=== PATIENT | male | born 1955 | race Caucasian/White ===

== ENCOUNTER 2017-04-13 08:10 | Day surgery (SDC) | payer BC ==
[2017-04-13] MEDS ORDERED: Sodium Chloride 0.9% 20 ML ONE ×2 (08:39→09:05)
[2017-04-13] MEDS ORDERED: diphenhydrAMINE 25 MG CAP PO SCH (09:30)
[2017-04-13] MEDS ORDERED: Acetaminophen 500 MG TAB PO SCH (09:30)
[2017-04-13 14:28] VITALS: BP 162/76; TEMP 96.3
[2017-04-13 14:50] LABS: Hematocrit 29.9 % (42.0-52.0); Mean Platelet Volume 8.9 fL (7.4-10.4); Red Blood Cell (RBC) Count 2.85 mill/uL (4.70-6.10); White Blood Cell (WBC) Count 4.3 thou/uL (4.8-10.8)
[2017-04-13 15:27] LABS: Anisocytosis SLIGHT = 6-15 cells (100X) (0-5/hpf); Band 4 % (5-11); Metamyelocyte 1 % (0-0); Neutrophil 40 % (42-75); Poikilocytosis SLIGHT = 6-15 cells (100X) (0-5/hpf); Reactive Lymphocytes 8 % (0-10)
== END 2017-04-13 14:39 | disposition home or self-care (01) ==
LOC: ONC/OP 08:10
PROVIDERS: ATTEND Internal Medicine Medical Oncology
PROC: 30233N1 Transfusion of Nonautologous Red Blood Cells into Peripheral Vein, Percutaneous Approach (ICD-10-PCS; principal; 2017-04-13)
DX: D64.9 Anemia, unspecified (principal); D69.6 Thrombocytopenia, unspecified; Z87.891 Personal history of nicotine dependence
CPT/HCPCS: 36415; 36430; 85025; 86850; 86900; 86901; A4216; P9016

== ENCOUNTER 2017-05-18 07:41 | Day surgery (SDC) | payer BC ==
[2017-05-18] MEDS ORDERED: diphenhydrAMINE 25 MG CAP PO SCH (09:45)
[2017-05-18] MEDS ORDERED: Acetaminophen 500 MG TAB PO SCH (09:45)
[2017-05-18] MEDS ORDERED: FLU VACC QS2017-18 36 mo. & older 0.5 ML SYRINGE IM ONE (10:00)
[2017-05-18 15:55] VITALS: BP 133/79; TEMP 98.4
[2017-05-18 15:57] LABS: Hematocrit 27.2 % (42.0-52.0); Mean Platelet Volume 8.9 fL (7.4-10.4); Red Blood Cell (RBC) Count 2.61 mill/uL (4.70-6.10); White Blood Cell (WBC) Count 5.5 thou/uL (4.8-10.8)
[2017-05-18 16:24] LABS: Anisocytosis MODERATE=16-30 cells (100X) (0-5/hpf); Band 10 % (5-11); Macrocytosis SLIGHT = 6-15 cells (100X) (0-5/hpf); Metamyelocyte 1 % (0-0); Myelocyte 1 % (0-0); Neutrophil 32 % (42-75); Polychromasia SLIGHT = 2-3 cells (100X) (0-2/hpf); Reactive Lymphocytes 7 % (0-10)
== END 2017-05-18 15:57 | disposition home or self-care (01) ==
LOC: ONC/OP 07:41
PROVIDERS: ATTEND Internal Medicine Medical Oncology
PROC: 30233N1 Transfusion of Nonautologous Red Blood Cells into Peripheral Vein, Percutaneous Approach (ICD-10-PCS; principal; 2017-05-18)
DX: D64.9 Anemia, unspecified (principal)
CPT/HCPCS: 36415; 36430; 85025; 86850; 86900; 86901; P9016

== ENCOUNTER → 2017-06-29 | Day surgery (SDC) | payer BC ==
[~2017-06-29] MED LIST: Acetaminophen 500 MG TAB PO SCH; diphenhydrAMINE 25 MG CAP PO SCH
[2017-06-29 18:18] VITALS: BP 145/81; TEMP 98.3
[2017-06-29 19:16] LABS: Hemoglobin 9.5 g/dL (14.0-18.0); Mean Corpuscular Hemoglobin 35.1 pg (27.0-31.0); Platelet Count 128 thou/uL (130-400); RBC Distribution Width 20.5 % (11.5-14.5)
[2017-06-29 19:45] LABS: Anisocytosis MODERATE=16-30 cells (100X) (0-5/hpf); Band 6 % (5-11); Eosinophils 1 % (0-10); Lymphocytes 35 % (21-51); MDiff Complete? YES; Macrocytosis SLIGHT = 6-15 cells (100X) (0-5/hpf); Metamyelocyte 2 % (0-0); Monocytes 18 % (0-10); Myelocyte 1 % (0-0); Neutrophil 37 % (42-75); Ovalocytes SLIGHT = 2-5 cells (100X) (0-1/hpf); PLT Morphology Comment Appears Decreased; Polychromasia SLIGHT = 2-3 cells (100X) (0-2/hpf)
== END ==
LOC: ONC/OP 09:47
PROVIDERS: ATTEND Emergency Medicine
PROC: 30233N1 Transfusion of Nonautologous Red Blood Cells into Peripheral Vein, Percutaneous Approach (ICD-10-PCS; principal; 2017-06-29)
DX: D64.9 Anemia, unspecified (principal); C94.6 Myelodysplastic disease, not elsewhere classified; I10 Essential (primary) hypertension; Z98.890 Other specified postprocedural states; Z87.891 Personal history of nicotine dependence
CPT/HCPCS: 36415; 36430; 85025; 86850; 86900; 86901; P9016

== ENCOUNTER 2017-08-15 08:27 | Day surgery (SDC) | payer BC ==
[2017-08-15] MEDS ORDERED: Acetaminophen 500 MG TAB PO SCH (08:45)
[2017-08-15] MEDS ORDERED: diphenhydrAMINE 25 MG CAP PO SCH (08:45)
[2017-08-15 14:33] VITALS: BP 118/68; TEMP 98.7
[2017-08-15 15:35] LABS: Anisocytosis SLIGHT = 6-15 cells (100X) (0-5/hpf); Band 1 % (5-11); Hemoglobin 8.5 g/dL (14.0-18.0); Lymphocytes 74 % (21-51); MDiff Complete? YES; Mean Corpuscular HGB CONC 34.1 g/dL (32.0-36.0); Mean Corpuscular Hemoglobin 34.3 pg (27.0-31.0); Mean Platelet Volume 9.1 fL (7.4-10.4); Monocytes 11 % (0-10); Neutrophil 14 % (42-75); PLT Morphology Comment Appears Decreased; Platelet Count 97 thou/uL (130-400); RBC Distribution Width 19.3 % (11.5-14.5); Red Blood Cell (RBC) Count 2.48 mill/uL (4.70-6.10); White Blood Cell (WBC) Count 2.6 thou/uL (4.8-10.8)
== END 2017-08-15 14:55 | disposition home or self-care (01) ==
LOC: ONC/OP 08:27
PROVIDERS: ATTEND Internal Medicine Hematology & Oncology
PROC: 30233N1 Transfusion of Nonautologous Red Blood Cells into Peripheral Vein, Percutaneous Approach (ICD-10-PCS; principal; 2017-08-15)
DX: D64.9 Anemia, unspecified (principal); D69.59 Other secondary thrombocytopenia
CPT/HCPCS: 36430; 85025; 86850; 86900; 86901; P9016

== ENCOUNTER 2017-09-23 12:42 | Day surgery (SDC) | payer BC ==
[2017-09-23] MEDS ORDERED: diphenhydrAMINE 25 MG CAP PO SCH (13:00)
[2017-09-23] MEDS ORDERED: Acetaminophen 500 MG TAB PO SCH (13:00)
[2017-09-23 17:46] VITALS: TEMP 98
[2017-09-23 18:07] VITALS: BP 129/73
[2017-09-23 18:43] LABS: Hemoglobin 9.6 g/dL (14.0-18.0); Mean Corpuscular HGB CONC 33.9 g/dL (32.0-36.0); Mean Corpuscular Hemoglobin 33.3 pg (27.0-31.0); Mean Corpuscular Volume 98.1 fl (80.0-94.0); Mean Platelet Volume 8.9 fL (7.4-10.4); Platelet Count 135 thou/uL (130-400); Red Blood Cell (RBC) Count 2.89 mill/uL (4.70-6.10); White Blood Cell (WBC) Count 2.4 thou/uL (4.8-10.8)
[2017-09-23 19:13] LABS: Anisocytosis SLIGHT = 6-15 cells (100X) (0-5/hpf); Band 1 % (5-11); Lymphocytes 49 % (21-51); MDiff Complete? YES; Monocytes 11 % (0-10); Neutrophil 22 % (42-75); Nucleated RBC 1 % (0); PLT Morphology Comment Appears Adequate; Polychromasia SLIGHT = 2-3 cells (100X) (0-2/hpf); Reactive Lymphocytes 14 % (0-10)
== END 2017-09-23 18:37 | disposition home or self-care (01) ==
LOC: ONC/OP 12:42
PROVIDERS: ATTEND Internal Medicine Medical Oncology
PROC: 30233N1 Transfusion of Nonautologous Red Blood Cells into Peripheral Vein, Percutaneous Approach (ICD-10-PCS; principal; 2017-09-23)
DX: D50.8 Other iron deficiency anemias; C93.10 Chronic myelomonocytic leukemia not having achieved remission; D64.9 Anemia, unspecified; D69.6 Thrombocytopenia, unspecified
CPT/HCPCS: 36430; 80053; 82248; 83615; 84100; 84550; 85025; 86850; 86900; 86901; P9016

== ENCOUNTER 2017-10-31 07:27 | Day surgery (SDC) | payer BC ==
[2017-10-31] MEDS ORDERED: Acetaminophen 500 MG TAB PO SCH (08:30)
[2017-10-31] MEDS ORDERED: diphenhydrAMINE 25 MG CAP PO SCH (08:30)
[2017-10-31 11:41] LABS: Hemoglobin 8.8 g/dL (14.0-18.0)
[2017-10-31 14:19] VITALS: BP 127/69; TEMP 97.7
== END 2017-10-31 14:21 | disposition home or self-care (01) ==
LOC: ONC/OP 07:27
PROVIDERS: ATTEND Internal Medicine Medical Oncology
PROC: 30233N1 Transfusion of Nonautologous Red Blood Cells into Peripheral Vein, Percutaneous Approach (ICD-10-PCS; principal; 2017-10-31)
DX: D64.9 Anemia, unspecified (principal)
CPT/HCPCS: 36430; 85014; 85018; 86850; 86900; 86901; P9016

== ENCOUNTER 2018-03-07 07:24 | Day surgery (SDC) | payer BC ==
[2018-03-07] MEDS ORDERED: diphenhydrAMINE 25 MG CAP PO SCH (08:30)
[2018-03-07] MEDS ORDERED: Acetaminophen 500 MG TAB PO SCH (08:30)
[2018-03-07] MEDS ORDERED: Sodium Chloride 0.9% 30 ML ONE (10:51)
[2018-03-07 12:36] LABS: Hemoglobin 8.8 g/dL (14.0-18.0)
[2018-03-07] MEDS ORDERED: Furosemide 20 MG/2 ML VIAL SLOW IVP SCH (12:45)
[2018-03-07 19:09] VITALS: BP 138/84; TEMP 97.6
== END 2018-03-07 15:15 | disposition home or self-care (01) ==
LOC: ONC/OP 07:24
PROVIDERS: ATTEND Internal Medicine Medical Oncology
DX: D64.9 Anemia, unspecified (principal); D69.6 Thrombocytopenia, unspecified
CPT/HCPCS: 36430; 85014; 85018; 86850; 86900; 86901; 96374; A4216; J1940; P9016

== ENCOUNTER 2018-05-15 13:52 | Day surgery (SDC) | payer BC ==
[2018-05-15] MEDS ORDERED: Sodium Chloride 0.9% 10 ML ONE (14:01)
[2018-05-15] MEDS ORDERED: Acetaminophen 500 MG TAB PO SCH (14:30)
[2018-05-15] MEDS ORDERED: diphenhydrAMINE 25 MG CAP PO SCH (14:30)
[2018-05-15 18:01] LABS: Hemoglobin 8.1 g/dL (14.0-18.0)
[2018-05-15 20:44] VITALS: TEMP 98.2
[2018-05-15 20:51] LABS: Hemoglobin 9.2 g/dL (14.0-18.0); Mean Corpuscular HGB CONC 33.8 g/dL (32.0-36.0); Mean Corpuscular Hemoglobin 34.2 pg (27.0-31.0); Mean Platelet Volume 9.2 fL (7.4-10.4); Platelet Count 141 thou/uL (130-400); RBC Distribution Width 16.4 % (11.5-14.5); White Blood Cell (WBC) Count 16.1 thou/uL (4.8-10.8)
[2018-05-15 21:38] VITALS: BP 144/70
== END 2018-05-15 21:00 | disposition home or self-care (01) ==
LOC: ONC/OP 13:52 → 3SE 13:54 → ONC/OP 21:00
PROVIDERS: ATTEND Internal Medicine Hematology & Oncology
DX: D64.9 Anemia, unspecified (principal); D69.6 Thrombocytopenia, unspecified
CPT/HCPCS: 36415; 36430; 85014; 85018; 86850; 86900; 86901; P9016

== ENCOUNTER → 2018-08-05 | Day surgery (SDC) | payer BC ==
[2018-08-04 13:12] VITALS: BMI 193.0
[~2018-08-05] MED LIST changes: -Acetaminophen 500 MG TAB PO SCH; +Bupivacaine HCl 0.5%/Epinephrine 1:200,000/PF 30 ml Vial ONE; +Lidocaine 2% PF 5 ML VIAL ONE; +PROPOFOL 200 MG/20 ML VIAL ONE; -diphenhydrAMINE 25 MG CAP PO SCH
--- NOTE | 2018-08-05 13:02 | RAD ---
CHEST ONE VIEW: History: Mediport placement. Comparison: 06-23-10 FINDINGS: There has been interval placement of the port catheter tip in the inferior SVC in good position. No p neumothorax. Lungs are clear. Cardiac silhouette and mediastinal contour similar. IMPRESSION: Uncomplicated placement of port catheter. POS: TPC
--- NOTE | 2018-08-05 13:02 | OP ---
DATE OF PROCEDURE: 08/05/2018 PREOPERATIVE DIAGNOSIS: Chronic CML. POSTOPERATIVE DIAGNOSIS: Chronic CML. PROCEDURE PERFORMED: Tunnelled central line subcutaneous port (MediPort CT injectable). ANESTHESIA: TIVA, local. ESTIMATED BLOOD LOSS: Minimal. COMPLICATIONS: None. SPECIMENS: None. FINDINGS: Tip of the catheters at the atriocaval junction. DESCRIPTION OF PROCEDURE: The patient was taken to the operating room and laid supine on the operating room table. After sedation was obtained, bilateral neck and chest were shaved, prepped, and draped in a sterile fashion. Local anesthetic was infiltrated over the right internal jugular vein. Internal jugular vein was cannulated using a 22-gauge finder needle followed by a Seldinger needle. The wire was passed into the superior vena cava under fluoro guidance. A small sania was made to at the wire entrance site. A separate 3-cm incision was made in the right upper chest. Subcutaneous pocket was made below the lower incision. Tubing for the MediPort tunneled from the inferior and superior incision, and suture sheath was placed over the wire into superior vena cava under fluoro guidance. The dilator and wire were removed and the end of the catheter was sewed into the sheath. The sheath was peeled away. The tip of the catheter was at the atriocaval junction. MediPort tubing was cut to fit the MediPort at the lower incision. It was connected to MediPort, which was sewn in subcutaneous pocket to the chest wall using Prolene. MediPort flushes and draws blood without difficulty, flushed with a heparin flush. All incisions were irrigated and closed using 3-0 Vicryl, 4-0 Monocryl, and Dermabond. The patient was sent to Recovery in stable condition. All instrument counts, needle counts, and lap counts were correct. Job ID: [id number]
== END ==
LOC: SDC 07:16
PROVIDERS: ATTEND Surgery
PROC: 02HV33Z Insertion of Infusion Device into Superior Vena Cava, Percutaneous Approach (ICD-10-PCS; principal; 2018-08-05)
DX: C93.10 Chronic myelomonocytic leukemia not having achieved remission (principal); I10 Essential (primary) hypertension; G47.33 Obstructive sleep apnea (adult) (pediatric); E78.5 Hyperlipidemia, unspecified; M10.9 Gout, unspecified; Z90.89 Acquired absence of other organs; Z87.891 Personal history of nicotine dependence; Z88.8 Allergy status to other drugs, medicaments and biological substances; Z79.82 Long term (current) use of aspirin; Z79.899 Other long term (current) drug therapy; Z98.890 Other specified postprocedural states
CPT/HCPCS: 71045; C1788; J0670; J1642; J2001; J2704

== ENCOUNTER 2018-08-07 07:39 | Day surgery (SDC) | payer BC ==
[2018-08-07] MEDS ORDERED: Sodium Chloride 0.9% 20 ML ONE (08:05)
[2018-08-07] MEDS ORDERED: Acetaminophen 500 MG TAB PO SCH (08:30)
[2018-08-07] MEDS ORDERED: diphenhydrAMINE 25 MG CAP PO SCH (08:30)
[2018-08-07 11:31] LABS: Hemoglobin 7.7 g/dL (14.0-18.0)
[2018-08-07 14:02] VITALS: BP 138/74; TEMP 98.1
== END 2018-08-07 14:03 | disposition home or self-care (01) ==
LOC: ONC/OP 07:39
PROVIDERS: ATTEND Internal Medicine Medical Oncology
PROC: 30233N1 Transfusion of Nonautologous Red Blood Cells into Peripheral Vein, Percutaneous Approach (ICD-10-PCS; principal; 2018-08-07)
DX: D64.9 Anemia, unspecified (principal); D69.6 Thrombocytopenia, unspecified
CPT/HCPCS: 36430; 85014; 85018; 86850; 86900; 86901; J1642; P9016; Q0163

== ENCOUNTER 2018-10-09 07:50 | Day surgery (SDC) | payer BC ==
[2018-10-09] MEDS ORDERED: Sodium Chloride 0.9% 40 ML ONE (08:21)
[2018-10-09] MEDS ORDERED: diphenhydrAMINE 25 MG CAP PO SCH (08:30)
[2018-10-09] MEDS ORDERED: Acetaminophen 500 MG TAB PO SCH (08:30)
[2018-10-09] MEDS ORDERED: Sodium Chloride 0.9% 20 ML ONE (10:52)
[2018-10-09 11:46] LABS: Hemoglobin 7.4 g/dL (14.0-18.0)
[2018-10-09 12:06] VITALS: TEMP 97.6
[2018-10-09 14:04] VITALS: BP 126/64
== END 2018-10-09 14:05 | disposition home or self-care (01) ==
LOC: ONC/OP 07:50
PROVIDERS: ATTEND Internal Medicine Medical Oncology
PROC: 30233N1 Transfusion of Nonautologous Red Blood Cells into Peripheral Vein, Percutaneous Approach (ICD-10-PCS; principal; 2018-10-09)
DX: D64.9 Anemia, unspecified (principal); D69.6 Thrombocytopenia, unspecified
CPT/HCPCS: 36430; 85014; 85018; 86850; 86900; 86901; J1642; P9016; Q0163

== ENCOUNTER 2018-11-13 08:51 | Outpatient (CLI) | payer BC, MEDICARE ==
--- NOTE | 2018-11-13 09:27 | ULT ---
ULTRASOUND ABDOMINAL AORTA: HISTORY: Screening for aneurysm. FINDINGS: There is plaque noted throughout the aorta and iliac arteries. The proximal portion of the aorta is o bscured by bowel gas. The abdominal aortic measurements as follows: Proximal: 2.2 x 2.8 cm Mid: 2 x 2.3 cm Distal: 1.8 x 2.2 cm. IMPRESSION: No definite evidence of abdominal aortic aneurysm.
== END 2018-11-13 08:52 | disposition home or self-care (01) ==
LOC: SCSULT 08:51
PROVIDERS: ATTEND Family Medicine
DX: Z13.6 Encounter for screening for cardiovascular disorders (principal)
CPT/HCPCS: 76775

== ENCOUNTER 2019-07-16 07:39 | Day surgery (SDC) | payer BC, MEDICARE ==
[2019-07-16] MEDS ORDERED: Acetaminophen 500 MG TAB PO SCH (08:15)
[2019-07-16] MEDS ORDERED: diphenhydrAMINE 25 MG CAP PO SCH (08:15)
[2019-07-16] MEDS ORDERED: Sodium Chloride 0.9% 20 ML ONE ×2 (08:37→14:08)
[2019-07-16 14:42] VITALS: BP 122/64; TEMP 98
== END 2019-07-16 14:43 | disposition home or self-care (01) ==
LOC: ONC/OP 07:39
PROVIDERS: ATTEND Internal Medicine Medical Oncology
PROC: 30233N1 Transfusion of Nonautologous Red Blood Cells into Peripheral Vein, Percutaneous Approach (ICD-10-PCS; principal; 2019-07-16)
DX: D64.9 Anemia, unspecified (principal); D69.6 Thrombocytopenia, unspecified
CPT/HCPCS: 36430; 86850; 86900; 86901; J1642; P9016; Q0163

== ENCOUNTER 2019-11-03 06:26 | Outpatient (CLI) | payer BC, MEDICARE, OTHER ==
[2019-11-03 13:07] LABS: Anion Gap 13 mmol/L (10-20); BUN (Urea Nitrogen) 17 mg/dL (8.4-25.7); Calc. Creatinine Clearance 0 mL/min (70-130); Calcium 9.4 mg/dL (7.8-10.44); Carbon Dioxide 24 mmol/L (23-31); Chloride 110 mmol/L (98-107); Estimated GFR-MDRD 78; Glucose 104 mg/dL (80-115); Potassium 3.9 mmol/L (3.5-5.1); Sodium 143 mmol/L (136-145)
[2019-11-03 13:37] LABS: Anisocytosis SLIGHT = 6-15 cells (100X) (0-5/hpf); Band 3 % (5-11); Hemoglobin 9.9 g/dL (14.0-18.0); Lymphocytes 8 % (21-51); MDiff Complete? YES; Macrocytosis SLIGHT = 6-15 cells (100X) (0-5/hpf); Mean Corpuscular HGB CONC 33.6 g/dL (32.0-36.0); Mean Corpuscular Hemoglobin 35.3 pg (27.0-31.0); Mean Platelet Volume 10.7 fL (7.4-10.4); Monocytes 13 % (0-10); Neutrophil 75 % (42-75); Platelet Count 111 thou/uL (130-400); Platelet Morphology Comment Appears Decreased; Polychromasia SLIGHT = 2-3 cells (100X) (0-2/hpf); RBC Distribution Width 15.6 % (11.5-14.5); White Blood Cell (WBC) Count 6.1 thou/uL (4.8-10.8)
--- NOTE | 2019-11-03 21:14 | EKG ---
Test Reason : Blood Pressure : / mmHG Vent. Rate : 099 BPM Atrial Rate : 099 BPM P-R Int : 160 ms QRS Dur : 094 ms QT Int : 336 ms P-R-T Axes : 060 064 056 degrees QTc Int : 431 ms Normal sinus rhythm Incomplete right bundle branch block Borderline ECG When compared with ECG of 23-MAY-2007 10:38, No significant change was found Confirmed by Dalton LANIER ([id number]) on 11/03/2019 9:13:33 PM Referred By: DENITA Confirmed By:Dalton LANIER
[2019-11-04 18:56] LABS: SARS-CoV-2 MS2 Positive; SARS-CoV-2 N Gene Negative; SARS-CoV-2 S Gene Negative; SARS-CoV-2 orf1ab Negative
== END 2019-11-03 06:27 | disposition home or self-care (01) ==
LOC: LABBT 06:26
PROVIDERS: ATTEND Surgery
DX: Z01.818 Encounter for other preprocedural examination (principal); Z11.59 Encounter for screening for other viral diseases; K42.9 Umbilical hernia without obstruction or gangrene; K40.90 Unilateral inguinal hernia, without obstruction or gangrene, not specified as recurrent
CPT/HCPCS: 80048; 85025; 87635; 93005; 93010; U0003

== ENCOUNTER 2019-11-05 08:01 | Day surgery (SDC) | payer BC, MEDICARE ==
[2019-11-03 11:23] VITALS: BMI 23.7
[2019-11-05] MEDS ORDERED: Bupivacaine 0.25% HCL 30 ML VIAL ONE (09:57)
[2019-11-05] MEDS ORDERED: Lidocaine 1% w/Epinephrine 1:100K 20 ML VIAL ONE (09:57)
[2019-11-05] MEDS ORDERED: Midazolam HCl 2 mg/2 ml Vial ONE (09:59)
[2019-11-05] MEDS ORDERED: Fentanyl 100 MCG/2 ML VIAL ONE ×2 (09:59→12:19)
[2019-11-05] MEDS ORDERED: EPHEDRINE 25 MG/5 ML SYRINGE ONE (13:23)
[2019-11-05] MEDS ORDERED: PROPOFOL 200 MG/20 ML VIAL ONE (13:23)
[2019-11-05] MEDS ORDERED: Glycopyrrolate 0.2 MG/ML 5 ML SYRINGE ONE (13:23)
[2019-11-05] MEDS ORDERED: Ketorolac Tromethamine 30 MG/ML VIAL ONE (13:23)
[2019-11-05] MEDS ORDERED: Ondansetron PF 4 MG/2 ML Vial ONE (13:23)
[2019-11-05] MEDS ORDERED: Rocuronium Bromide 10 MG/ML (10ML VIAL) ONE (13:23)
[2019-11-05] MEDS ORDERED: PHENYLEPHRINE-NS 100 MCG/ML 10 ML SYRINGE ONE (13:23)
[2019-11-05] MEDS ORDERED: Dexamethasone 20 MG/5 ML VIAL ONE (13:23)
[2019-11-05] MEDS ORDERED: Lidocaine 1% PF 5 ML VIAL ONE (13:23)
[2019-11-05] MEDS ORDERED: Tamsulosin HCl 0.4 MG CAP PO SCH (13:45)
[2019-11-05] MEDS ORDERED: Tamsulosin HCl 0.4 MG CAP ONE (13:46)
--- NOTE | 2019-11-05 15:52 | OP ---
DATE OF PROCEDURE: 11/05/2019 PREOPERATIVE DIAGNOSES: 1. Right inguinal hernia. 2. Umbilical hernia. POSTOPERATIVE DIAGNOSES: 1. Bilateral inguinal hernia. 2. Umbilical hernia. PROCEDURES PERFORMED: 1. Da Gil laparoscopic bilateral inguinal hernia repair with mesh, Bard 3DMax large. 2. Umbilical hernia repair with mesh, Ventralex ST small. ANESTHESIA: General. ESTIMATED BLOOD LOSS: Minimal. COMPLICATIONS: None. SPECIMENS: None. FINDINGS: Bilateral inguinal hernia and umbilical hernia. DESCRIPTION OF PROCEDURE: The patient was taken to the operating room and laid supine on the operating room table. After general anesthetic was obtained, a Ching was placed. The abdomen was shaved, prepped, and draped in a sterile fashion. A curved incision was made above the umbilicus. Cautery was used to dissect down to and score the fascia. Abdominal cavity was entered bluntly using a Lindsay clamp. A holding stitch of PDS was placed on each side of the fascia. An 11 mm balloon trocar was placed. High-flow pneumoperitoneum was obtained. Left and right abdominal 8-mm robotic trocars were placed. All ports were docked to the robot. The peritoneum was taken down in the bilateral groins, exposing the bilateral indirect hernias. The dissection was performed to the pubic tubercle medially and to the anterior superior iliac crest laterally. Shelving edge of inguinal ligament was fully exposed. Bilateral indirect hernia sacs were dissected high up on to the peritoneum. The bilateral Bard 3DMax large mesh was brought in and labeled medial aspect was placed over Amari's ligament. The mesh was laid out to cover the direct, indirect, and femoral areas. The mesh was sewn via 2-0 Vicryl to the pubic tubercle medially and to the posterior fascia laterally. The peritoneum was closed using a Stratafix bilaterally. All needles were removed from the abdomen and accounted for. All port sites were infiltrated using local anesthetic and removed. All ports were removed under camera visualization and pneumoperitoneum was let down. The umbilical stalk was amputated as the umbilical wound, exposing the umbilical defect. The Ventralex ST mesh was placed into the abdominal cavity and its anterior fat layer was sewn to the posterior fascia using U-stitch of permanent braided suture. The fascia was closed loosely over the mesh. The umbilical stalk was tacked back down using Vicryl. The skin was irrigated. Local anesthetic was applied and the wound was closed using 4-0 Monocryl and Dermabond. The patient was sent to Recovery in stable condition. All instrument counts, needle counts, and lap counts were correct. Job ID: [id number]
== END 2019-11-05 14:10 | disposition home or self-care (01) ==
LOC: SDC 08:01
PROVIDERS: ATTEND Surgery
PROC: 0WUF0JZ Supplement Abdominal Wall with Synthetic Substitute, Open Approach (ICD-10-PCS; principal; 2019-11-05)
PROC: 0YUA4JZ Supplement Bilateral Inguinal Region with Synthetic Substitute, Percutaneous Endoscopic Approach (ICD-10-PCS; principal; 2019-11-05)
DX: K40.20 Bilateral inguinal hernia, without obstruction or gangrene, not specified as recurrent (principal); K42.9 Umbilical hernia without obstruction or gangrene; C93.10 Chronic myelomonocytic leukemia not having achieved remission; I10 Essential (primary) hypertension; E78.5 Hyperlipidemia, unspecified; G47.33 Obstructive sleep apnea (adult) (pediatric); Z79.82 Long term (current) use of aspirin; Z79.899 Other long term (current) drug therapy; Z91.048 Other nonmedicinal substance allergy status; Z87.891 Personal history of nicotine dependence; Z88.8 Allergy status to other drugs, medicaments and biological substances
CPT/HCPCS: C1781; J0690; J1100; J1885; J2001; J2250; J2405; J2704; J3010; S0020

== ENCOUNTER 2020-02-19 12:09 | Inpatient (IN) | payer BC, MEDICARE, OTHER ==
[~2020-02-19 12:09] MED LIST changes: -Bupivacaine HCl 0.5%/Epinephrine 1:200,000/PF 30 ml Vial ONE; +Iopamidol-370 76% 500 ML 1 ML ONE; -Lidocaine 2% PF 5 ML VIAL ONE; -PROPOFOL 200 MG/20 ML VIAL ONE
[2020-02-19] MEDS ORDERED: Cefepime 1 GM VIAL ONE (12:46)
[2020-02-19] MEDS ORDERED: Dexamethasone 10 MG/ML VIAL ONE (12:46)
[2020-02-19 12:58] LABS: Mean Corpuscular HGB CONC 33.7 g/dL (32.0-36.0); Mean Corpuscular Hemoglobin 34.9 pg (27.0-31.0); Mean Platelet Volume 10.2 fL (7.4-10.4); Platelet Count 213 thou/uL (130-400); RBC Distribution Width 15.2 % (11.5-14.5); Red Blood Cell (RBC) Count 2.88 mill/uL (4.70-6.10); White Blood Cell (WBC) Count 6.4 thou/uL (4.8-10.8)
--- NOTE | 2020-02-19 13:12 | RAD ---
Exam: Chest one view HISTORY:Dyspnea Comparison: 08/05/2018 FINDINGS: Cardiac silhouette: Normal Lines and tubes: Stable right-sided Mediport catheter Aorta: At the sclerosis Pulmonary vessels: Normal Costophrenic angles: Clear LUNGS: Scarring and/or atelectasis in the left lung base. Additional linear opacities are felt to be chronic. Possible focal alveolar infiltrate in the mid right lung. Pneumothorax: None Osseous abnormalities: None IMPRESSION: 1. Chronic lung parenchymal changes. 2. Possible focal alveolar infiltrate in the right midlung.
[2020-02-19 13:17] LABS: ALT (SGPT) 18 U/L (8-55); AST (SGOT) 19 U/L (5-34); Albumin 3.8 g/dL (3.4-4.8); Alkaline Phosphatase 72 U/L (40-110); Anion Gap 17 mmol/L (10-20); BUN (Urea Nitrogen) 19 mg/dL (8.4-25.7); Bilirubin, Total 0.5 mg/dL (0.2-1.2); Calc. Creatinine Clearance 0 mL/min (70-130); Calcium 8.7 mg/dL (7.8-10.44); Carbon Dioxide 23 mmol/L (23-31); Chloride 103 mmol/L (98-107); Estimated GFR-MDRD 62; Globulin 2.6 g/dL (2.4-3.5); Glucose 207 mg/dL (80-115); Potassium 3.7 mmol/L (3.5-5.1); Protein, Total 6.4 g/dL (5.8-8.1); Sodium 139 mmol/L (136-145)
[2020-02-19 13:18] LABS: Band 10 % (5-11); Lymphocytes 6 % (21-51); MDiff Complete? YES; Macrocytosis SLIGHT = 6-15 cells (100X) (0-5/hpf); Metamyelocyte 2 % (0-0); Monocytes 27 % (0-10); Neutrophil 55 % (42-75); Platelet Morphology Comment Appears Adequate; Polychromasia SLIGHT = 2-3 cells (100X) (0-2/hpf)
--- NOTE | 2020-02-19 15:01 | CT ---
CT PULMONARY ANGIOGRAM WITH IV CONTRAST AND 3D POSTPROCESSING: Date: 02/19/2020 HISTORY: Shortness of breath. COVID-positive. Fever. Leukemia. FINDINGS: No filling defects are seen in the pulmonary arterial vasculature to suggest pulmonary embolism. Ther e are vascular calcifications without evidence of aneurysmal dilatation of the thoracic aorta. No ple ural or pericardial effusions are seen. Bilateral patchy ground-glass opacities are noted. No pneumot horaces, or pleural or pericardial effusions are seen. There are degenerative changes in the spine. IMPRESSION: 1. No CT evidence of pulmonary embolism. 2. Parenchymal changes suspicious for COVID-19 pneumonia. POS: RAMÍREZA
[2020-02-19 16:15] LABS: Lactic Acid 2.1 mmol/L (0.5-2.2)
[2020-02-19] MEDS ORDERED: Senokot S 8.6-50 MG TAB PO PRN (16:19)
[2020-02-19] MEDS ORDERED: HYDROcodone/Acetaminophen 5/325 mg Tablet PO PRN (16:19)
[2020-02-19] MEDS ORDERED: Ondansetron PF 4 MG/2 ML Vial IVP PRN (16:19)
[2020-02-19] MEDS ORDERED: hydrALAZINE 20 MG/ML VIAL SLOW IVP PRN (16:23)
[2020-02-19] MEDS ORDERED: Dextrose 5% in Water 1,000 ML IV PRN (16:40)
[2020-02-19] MEDS ORDERED: Dextrose 50% Abboject 50 ML SYRINGE SLOW IVP PRN (16:40)
[2020-02-19 17:39] LABS: Troponin I Less than 0.010 ng/mL (< 0.028)
--- NOTE | 2020-02-19 17:49 | HP ---
PRIMARY CARE PHYSICIAN: Juan Miguel Mora MD CHIEF COMPLAINT: Short of breath. HISTORY OF PRESENT ILLNESS: This is a very pleasant 64-year-old gentleman, who has significant past medical history of myelodysplastic syndrome that was diagnosed about 10 years ago converted to leukemia, undergoing chemotherapy with Dr. Varner for last couple of years. He was sent from his oncology for the recommendations of COVID pneumonia. The patient apparently was diagnosed with COVID positive last Saturday on 02/16/2020. He also had a couple of family members also recently diagnosed with COVID positive. At any rate, the patient reports that he had a fever of 101.5 earlier today and worsening short of breath. For that reason, he was directed to the ED for further evaluations and management. His ANC outpatient was reported 700. His WBC is normal here. Initial workup in the ED showed that his D-dimer slightly elevated at 0.18. He subsequently underwent CTA to rule out PE, which came back negative. However, findings demonstrated parenchymal changes suspicious for COVID-19 pneumonia. Given his symptomatology, Hospitalist was asked to admit the patient for further management of COVID pneumonia. REVIEW OF SYSTEMS: A complete review of systems has been assessed and discussed with the patient, is negative and positive pertinent symptoms noted in HPI, otherwise reviewed and negative. PAST MEDICAL HISTORY: 1. Diabetes type 2, on diet control. 2. Myelodysplastic syndrome. 3. Leukemia. 4. Hypertension. 5. Dyslipidemia. 6. BPH. PAST SURGICAL HISTORY: Multiple back surgeries, MediPort placement, and hernia repair x3. SOCIAL HISTORY: The patient denies any alcohol or recreational drug use. He chews tobacco. FAMILY HISTORY: Significant for father with esophageal cancer. Mother with history of non-Hodgkin lymphoma. LABORATORY DATA AND IMAGING STUDY: D-dimer is 0.58. Lactic acid is 3.3. CRP 6.3. CBC; WBC 6.3, hemoglobin 10.0, hematocrit 29.8, and platelets 213. Chemistry; sodium 139, potassium 3.7, chloride 103, carbon dioxide 23, anion gap 17, BUN 19, and creatinine is 1.17. AST and ALT within normal limits. Glucose 207. Chest x-ray showed chronic lung parenchymal changes, possible focal alveolar infiltrates on the right mid lung. CTA of the chest, no evidence of PE, findings consistent with COVID-19 pneumonia. ALLERGIES: ADHESIVE TAPE. HOME MEDICATIONS: 1. Crestor 5 mg p.o. daily. 2. Norvasc 10 mg p.o. daily. 3. mg p.o. daily. 4. Flomax 0.4 mg p.o. daily. 5. Aspirin 81 mg p.o. daily. 6. Multivitamin tablet one tablet p.o. daily. 7. Coenzyme Q10 of 100 mg p.o. daily. 8. Vitamin D3 of 1000 units p.o. daily. 9. Azithromycin 500 mg p.o. daily. 10. Naproxen 500 mg p.o. p.r.n. daily for pain. 11. Decadron 4 mg p.o. daily. PHYSICAL EXAMINATION: VITAL SIGNS: Blood pressure is 151/92, pulse of 105, respiratory rate 30, temperature is 99.1, pain is 5, and O2 saturation 90% on room air. GENERAL APPEARANCE: The patient is alert and oriented x3 with normal affect. The patient is not in acute distress. HEENT: Normocephalic and atraumatic. Mucous membranes moist. NECK: Supple. No lymphadenopathy. No JVD. CARDIOVASCULAR: Regular rate and rhythm. S1 and S2 noted. No murmur. PULMONOLOGY: Crackles bibasilar. No expiratory wheezing noted. No accessory muscle use. ABDOMEN: Soft, nontender, and nondistended. Positive bowel sounds. EXTREMITIES: No edema. SKIN: No rash. NEUROLOGIC: Cranial nerves 2 through 12 are grossly intact. No focal weakness. PSYCHIATRIC: The patient is alert and oriented x3 with no normal affect. ASSESSMENT AND PLAN: The patient is a pleasant 64-year-old gentleman , who has significant past medical history of leukemia, undergoing chemotherapy, hypertension, diabetes, and dyslipidemia, who was sent by his oncologist for direct admission of COVID pneumonia given his fever and worsening dyspnea. He was diagnosed with COVID positive on 02/16/20, outpatient. 1. Acute hypoxic respiratory failure secondary to COVID pneumonia. The patient will be admitted to [facility]. The patient appears to be tolerating nasal cannula well. We will continue O2 supplement. Empiric IV antibiotic. We will continue with vancomycin and cefepime. We will ask Pharmacy to dose vancomycin and monitor vanco trough. Blood culture has been obtained. We will continue with supportive cares. Wean O2 as tolerated. 2. COVID-19 pneumonia. We will continue with empiric IV antibiotic as mentioned above. Also, Decadron 10 mg p.o. daily, and GI prophylaxis with PPI. Wean O2 as tolerated. 3. Sepsis, present on admission secondary to pneumonia. We will continue with IV fluid hydration, follow blood cultures, and broad-spectrum IV antibiotics. 4. Leukemia. We will consult Oncology for further recommendations. 5. Diabetes. The patient reports that he is on diabetic control. He is on Decadron. We will add insulin sliding scale. We will check his hemoglobin A1c. Monitor blood glucose and adjust accordingly. 6. Hypertension. Blood pressure is slightly elevated. We will add p.r.n. hydralazine with parameter. We will await for his home medications to be reconciled and resume appropriately. 7. BPH. We will resume his Flomax when able. 8. Dyslipidemia. Continue his statin therapy after verified his home medication. 9. Anemia secondary to his chronic disease. Hemoglobin stable at 10.0. Low threshold for transfusion. We will monitor daily CBC. 10. Lactic acidemia. We will trend lactate level. Continue IV fluid hydration. Follow culture and antibiotics as above. 11. Deep venous thrombosis prophylaxis. We will start the patient on Lovenox subcu. The patient is high risk for thrombotic events. 12. GI prophylaxis. We will start the patient on PPI as the patient is on Decadron. CODE STATUS: I have discussed the code status with the patient. He is full code per his request. Thank you for allowing us to participate in this patient's care. Job ID: [id number] MTDD
[2020-02-19 19:54] VITALS: BMI 26.2
[2020-02-19] MEDS: guaiFENesin ER 600 MG TAB PO SCH (20:30)
[2020-02-19] MEDS ORDERED: Vancomycin 1 GM in Premix Bag 1 BAG IVPB SCH (21:00)
[2020-02-19 21:35] LABS: Troponin I 0.024 ng/mL (< 0.028)
[2020-02-20] MEDS: Cefepime 1 GM in Sodium Chloride 0.9% 100 ML IVPB SCH ×2 (00:45→12:57)
[2020-02-20] MEDS: Albuterol 200 PUFF (6.7GM INHALER) INH PRN (02:53)
[2020-02-20] MEDS: Vancomycin HCl 1.25 GM in Sodium Chloride 0.9% 250 ML 250 ML IVPB SCH ×2 (04:46→15:03)
[2020-02-20 06:45] LABS: Reticulocyte Count 3.4 % (0.5-1.5)
[2020-02-20 06:48] LABS: Hemoglobin 10.2 g/dL (14.0-18.0); Mean Corpuscular HGB CONC 31.9 g/dL (32.0-36.0); Mean Corpuscular Hemoglobin 33.3 pg (27.0-31.0); Mean Platelet Volume 10.1 fL (7.4-10.4); Platelet Count 227 thou/uL (130-400); RBC Distribution Width 14.9 % (11.5-14.5); Red Blood Cell (RBC) Count 3.08 mill/uL (4.70-6.10); White Blood Cell (WBC) Count 7.3 thou/uL (4.8-10.8)
[2020-02-20 06:55] LABS: Hemoglobin A1c 5.5 % (4.0-6.0)
[2020-02-20 07:02] LABS: Band 9 % (5-11); Lymphocytes 18 % (21-51); MDiff Complete? YES; Metamyelocyte 6 % (0-0); Monocytes 14 % (0-10); Myelocyte 1 % (0-0); Neutrophil 52 % (42-75); Nucleated RBC 1 % (0); Platelet Morphology Comment Appears Adequate
[2020-02-20 07:10] LABS: ALT (SGPT) 18 U/L (8-55); AST (SGOT) 28 U/L (5-34); Albumin 3.9 g/dL (3.4-4.8); Alkaline Phosphatase 73 U/L (40-110); Anion Gap 16 mmol/L (10-20); BUN (Urea Nitrogen) 18 mg/dL (8.4-25.7); Bilirubin, Total 0.5 mg/dL (0.2-1.2); CRP (Inflammatory) 7.98 mg/dL (= or < 0.5); Calc. Creatinine Clearance 90 mL/min (70-130); Calcium 9.1 mg/dL (7.8-10.44); Carbon Dioxide 24 mmol/L (23-31); Chloride 105 mmol/L (98-107); Estimated GFR-MDRD 70; Globulin 3.3 g/dL (2.4-3.5); Glucose 118 mg/dL (80-115); Iron 33 ug/dL (65-175); Iron Binding Capacity, Total 200 mcg/dL (261-462); Magnesium 1.8 mg/dL (1.6-2.6); Potassium 3.8 mmol/L (3.5-5.1); Protein, Total 7.2 g/dL (5.8-8.1); Sodium 141 mmol/L (136-145)
[2020-02-20] MEDS: Dexamethasone 4 MG TAB PO SCH (08:04)
[2020-02-20] MEDS: Enoxaparin Sodium 60 MG/0.6 ML SYRINGE SC SCH (08:05)
[2020-02-20] MEDS: guaiFENesin ER 600 MG TAB PO SCH ×2 (08:05→19:26)
[2020-02-20] MEDS ORDERED: Electrolyte Replacement Protoc 1 EACH EACH FS PRN (09:16)
[2020-02-20 09:54] LABS: Actual Bicarbonate (HCO3a) 23.8 mEq/L (22-28); Base Excess (BEa) 0.6 mEq/L (-2.0 to +3.0); CO2 Tension 32.7 mmHg (35.0-45.0); Calcium, Ionized (arterial) 1.13 mmol/L (1.12-1.30); Carboxyhemoglobin (COHb) 0.2 gm% (0.0-3.0); Hemoglobin (Hb) 9.7 g/dL (14.0-18.0); O2 Tension (PaO2), arterial 65.8 mmHg (> 80.0); Potassium - ABG Lab 3.57 mmol/L (3.70-5.30); pH, Arterial 7.48 (7.35-7.45)
[2020-02-20 09:57] LABS: ALV-art Gradient 207.045 (0-20); Puncture Site RRA
[2020-02-20 10:57] LABS: Phosphorus 2.8 mg/dL (2.3-4.7)
[2020-02-20] MEDS ORDERED: Magnesium 2 GM/50 ML 2 GM in Premix Bag 1 BAG IVPB SCH (12:30)
[2020-02-20] MEDS: Acetaminophen 325 MG TAB PO PRN (13:46)
--- NOTE | 2020-02-20 16:22 | CON ---
DATE OF CONSULTATION: REASON FOR CONSULTATION: MDS plus CMML. HISTORY OF PRESENT ILLNESS: Mr. Moreno is a pleasant 64-year-old gentleman who has a low-grade myelodysplastic syndrome with symptomatic anemia and pancytopenia. He also has chronic myelomonocytic leukemia. He is currently on treatment with Vidaza chemotherapy and luspatercept. His last Vidaza was on 01/19. Last luspatercept was on 02/09. He called our office on 02/15, and informed us that he tested positive for COVID-19. He was essentially asymptomatic at diagnosis; however, he was informed that treatment will be held for 10 to 14 days. He again called our office yesterday, stating he had a fever of 101.4, significant shortness of breath, and cough. He was referred to the emergency room for treatment. When he was diagnosed with COVID on 02/15, he did receive azithromycin and steroids. The patient is currently on COVID-19 precautions. The patient was assessed via telephone at bedside. He is having some mild confusion and is currently on 6 L nasal cannula. PAST MEDICAL HISTORY: 1. Low-grade MDS with pancytopenia. 2. Chronic myeloid monocytic leukemia. 3. Hypertension. 4. Diabetes. PAST SURGICAL HISTORY: 1. MediPort placement. 2. Hernia repair. 3. Back surgery. ALLERGIES: TO SIMVASTATIN. HOME MEDICATIONS: 1. Amlodipine. 2. Aspirin. 3. Coenzyme Q10. 4. Losartan. 5. Rosuvastatin. 6. B complex. 7. Flomax. 8. D3. FAMILY HISTORY: Father had esophageal cancer. SOCIAL HISTORY: , lives with his spouse who is also COVID-19 positive. No alcohol, tobacco, or illicit drug use. REVIEW OF SYSTEMS: Unable to obtain secondary to mild confusion. PHYSICAL EXAMINATION: VITAL SIGNS: Temperature 100.2, pulse is 94, respiratory rate 30, BP is 155/83 , and he is 93% on 6 L. LUNGS: Respirations are labored. NEUROLOGIC: He is slightly confused, but nonfocal. PERTINENT LABORATORY DATA AND X-RAYS: WBCs are 7.3, hemoglobin 10.2, hematocrit 32.1, and platelet count is 227,000. He has 52% neutrophils, 9% bands, 18% lymphocytes, 14% monocytes, and 6% metamyelocytes. Sedimentation rate is 65 and reticulocyte count 3.4. D-dimer 0.58. Sodium 141, potassium 3.8, chloride 105 , CO2 is 24, BUN is 18, and creatinine 1.06. Hemoglobin A1c is 5.5. Calcium 9.1. Lactic acid is 2.1. Magnesium 1.8. Bilirubin 0.5, AST is 28, ALT is 18, alkaline phosphatase is 73, serum total protein is 7.2, albumin 3.9, and globulin 3.3. B12 is 982 and folate is 1510. C-reactive protein is 7.98. CT angio showed no pulmonary embolus, but evidence of parenchymal changes, suspicious for COVID-19 pneumonia. ASSESSMENT: 1. COVID-19 pneumonia. 2. Low-grade myelodysplastic syndrome. 3. Chronic myelomonocytic leukemia. DISCUSSION: The patient's CBC shows normal white count and normal platelet value. The patient has not had a normal white count and platelets for quite some time. This may be steroid effect. His hemoglobin tends to stay around 9.5 or 10. We continue to watch his CBC closely and provide supportive care. Thank you for the consult. Job ID: [id number] RISA
--- NOTE | 2020-02-20 16:35 | CON ---
DATE OF CONSULTATION: 02/20/2020 REASON FOR CONSULTATION: COVID infection. HISTORY OF PRESENT ILLNESS: A 64-year-old with history of some form of leukemia associated with myelodysplastic syndrome. He is receiving chemotherapy under supervision by Dr. Varner. I do not have a lot of information regarding his treatment. He recently had a herniorrhaphy by Dr. Meyer in October, and then about a little bit less than 2 weeks ago, he went to visit his zfcbvem-ov-pyr in [place], did not wear a mask and his uddhypz-go-zli was diagnosed with COVID later on, and now he has the disease. He has been symptomatic now for about a week with myalgias, fever, cough, and dyspnea, so he came in on 02/18, and tested positive Saturday, but 4 or 5 days before. His BP was 150/92, pulse 105, respirations 30, temperature 99 with saturating at 90% and room air and 94 with 2 L. Right now, he was seen in one of the rooms in the COVID unit, sitting by the bed, he has a mask on and is oriented. He has difficulty with recollection of events. Denies headaches. No sore throat. No back pain except for the very end of the spine, lumbosacral area, mild. He is coughing intermittently, but not much. A little bit dyspneic. No abdominal pain or diarrhea. Voiding without difficulty. No joint symptoms. No skin disorder. No neurological symptoms. PAST MEDICAL HISTORY: 1. Type 2 diabetes. 2. Hypertension. 3. Myelodysplastic syndrome with leukemia transformation, on chemotherapy through a port in right subclavian location. Dr. Varner is the oncologist. SOCIAL HISTORY: Current smoker. Lives at home. He is retired, disabled. ALLERGIES: ADHESIVE TAPE. CURRENT MEDICATIONS: He is on: 1. Aspirin. 2. Cefepime. 3. Decadron. 4. Lovenox. 5. Mucinex. 6. Asmanex. 7. Vancomycin. 8. Tamsulosin. FAMILY HISTORY: Noncontributory except for the fyenqni-ns-ozt who had COVID. PHYSICAL EXAMINATION: VITAL SIGNS: T-max 100.2, BP 150/80, pulse 94 to 115, breathing at 30 times a minute, O2 saturations are 93 on 6 L. SKIN: Unremarkable except for the port. He is voiding spontaneously in the toilet. No lymphadenopathy. HEENT: Ocular movements conjugate. Conjunctivae normal. Pupils are 2 mm and reactive. Oral cavity moist, quite a few teeth in place with a lot of decay and gum disease. NECK: Supple. No jugular vein distention. LUNGS: No obvious crackles. No wheezing. Symmetric air entry. Right and left hemithorax. HEART: S1 and S2. Regular rate. No S3 or S4. ABDOMEN: Soft, not distended or tender. No ascites. No bladder distention. EXTREMITIES: No joint inflammatory activity. No edema. Stasis dermatitis in lower extremities. Pulses 1+ in dorsalis pedis. Moves all extremities equally. Plantar responses are flexor. No clonus. NEUROLOGIC: He knows his name. He knows where he is. He has trouble with recollecting events, particularly more recent ones. Speech appears to be normal. He speaks in full sentences. LABORATORY DATA: White cell count 6.4 and 7.3, hemoglobin 10.2, and platelets 227, 52% neutrophils, 18% lymphocytes, 14% monocytes, and 6% metamyelocytes. D-dimer 0.58. A pH of 7.48, pCO2 of 32, and pO2 of 65. Creatinine 1.06. Iron 33, ferritin 494, and CRP 7.98. Liver profile normal. CT with bilateral ground-glass opacities, symmetrically distributed, more prevalent in dependent areas of the lung. ASSESSMENT: 1. Leukemia/myelodysplastic syndrome, on chemo through port. 2. COVID infection with qupwovyh-sj-wqfawg manifestation of pneumonia. He is requiring quite a bit of O2 supplementation. DISCUSSION: At this point, we will start him on remdesivir and plasma. Continue Decadron. Discontinue antimicrobials. He is not neutropenic at the moment. The incidence of bacterial infections concomitant with COVID is quite low except for later in the presentation. He is at risk for deterioration in view of the elevated markers and degree of oxygen supplementation requirement. Continue with enoxaparin prophylaxis. Monitor inflammatory markers and D-dimer daily. Job ID: [id number]
[2020-02-20] MEDS: Mometasone 100 MCG/PUFF (1 INHALER) INH SCH (17:35)
--- NOTE | 2020-02-20 18:06 | PDOC.HOSPP ---
- Subjective Encounter Date: 02/20/20 Encounter Time: 18:06 Subjective: Patient seen and examined for sepsis with pneumonia. Denies any new complaints. Mentation slowly improving. - Objective Vital Signs & Weight: Vital Signs (12 hours) Temp Pulse Resp BP Pulse Ox 02/20/20 13:19 100.2 F H 94 30 H 155/83 H 93 L 02/20/20 08:34 115 H 32 H 164/87 H 93 L Weight Admit Weight 204 lb 6.4 oz Weight 204 lb 6.4 oz I&O: 02/19/20 02/20/20 02/21/20 06:59 06:59 06:59 Intake Total 360 Output Total 700 Balance -340 Result Diagrams: 02/20/20 06:35 02/20/20 06:35 Additional Labs: Accuchecks 02/20/20 02/19/20 13:56 22:23 POC Glucose 180 H 179 H Radiology Reviewed by me: Yes (Chest x-raypneumonia) EKG Reviewed by me: Yes (Sinus rhythm on telemetry) Hospitalist ROS - Review of Systems ROS unobtainable: due to mental status - Medication Medications: Active Medications Generic Name Dose Route Start Last Admin Trade Name Freq PRN Reason Stop Dose Admin Acetaminophen 650 mg 02/19/20 16:19 02/20/20 13:46 Tylenol PO 650 mg Q4H PRN Administration Headache/Fever/Mild Pain (1-3) Albuterol Sulfate 2 puff 02/20/20 02:27 02/20/20 02:53 Proventil Hfa INH 2 puff Q4H PRN Administration SOB &/or Wheezing Dexamethasone 10 mg 02/20/20 08:00 02/20/20 08:04 Decadron PO 10 mg QAM-WM AURA Administration Enoxaparin Sodium 60 mg 02/20/20 09:00 02/20/20 08:05 Lovenox SC 60 mg 0900 AURA Administration Guaifenesin 600 mg 02/19/20 21:00 02/20/20 08:05 Mucinex PO 600 mg Q12HR AURA Administration Cefepime HCl 1 gm/ Sodium 100 mls @ 200 mls/hr 02/20/20 01:00 02/20/20 12:57 Chloride IVPB 100 mls 0100,1300 AURA Administration Vancomycin HCl 1.25 gm/ Sodium 250 mls @ 166.667 mls/hr 02/20/20 03:00 15:03 Chloride IVPB 250 mls 0300,1500 AURA Administration - Exam General Appearance: ill appearing Neck: supple, no JVD Heart: RRR, no gallops Respiratory: no wheezes, rales, rhonchi Gastrointestinal: soft, non-tender, normal bowel sounds Extremities: no cyanosis Neurological: no new deficit Psychiatric: normal affect Hosp A/P - Plan DVT proph w/lovenox, DVT proph w/SCDs Sepsis with acute hypoxic respiratory failure COVID-19 positive test (U07.1, COVID-19) with Acute Pneumonia Chronic myelomonocytic leukemia with myelodysplastic syndrome Diabetes mellitus type 2 Hypertension Dyslipidemia Benign prostatic hypertrophy Anemia due to chronic disease CKD stage II Hypomagnesemia Elevated inflammatory markers Plan: Continue vancomycin with cefepime. Monitor vancomycin level. Continue dexamethasone. Infectious disease consulted. Patient will probably benefit from Remdesivir and plasma. Continue sliding scale. Monitor inflammatory markers. Recheck labs in a.m. Replace magnesium. Plan discussed with patient and the spouse over the phone.
[2020-02-20] MEDS ORDERED: REMDESIVIR (EUA) 200 MG in Sodium Chloride 0.9% 250 ML 210 ML IV SCH (19:00)
[2020-02-20] MEDS: Tamsulosin HCl 0.4 MG CAP PO SCH (19:26)
[2020-02-20] MEDS: HumaLOG 300 UNITS/3 ML VIAL SC PRN (19:47)
[2020-02-21] MEDS: Cefepime 1 GM in Sodium Chloride 0.9% 100 ML IVPB SCH ×2 (00:12→12:13)
[2020-02-21 02:25] LABS: Vancomycin, Trough 9.2 ug/mL
[2020-02-21 02:28] LABS: ALT (SGPT) 25 U/L (8-55); AST (SGOT) 31 U/L (5-34); Albumin 3.6 g/dL (3.4-4.8); Alkaline Phosphatase 68 U/L (40-110); Bilirubin, Direct 0.3 mg/dL (0.1-0.3); Bilirubin, Total 0.5 mg/dL (0.2-1.2); Protein, Total 6.7 g/dL (5.8-8.1)
[2020-02-21 02:38] LABS: ALT (SGPT) 25 U/L (8-55); AST (SGOT) 31 U/L (5-34); Albumin 3.6 g/dL (3.4-4.8); Alkaline Phosphatase 68 U/L (40-110); Anion Gap 13 mmol/L (10-20); BUN (Urea Nitrogen) 20 mg/dL (8.4-25.7); Bilirubin, Total 0.5 mg/dL (0.2-1.2); CRP (Inflammatory) 8.58 mg/dL (= or < 0.5); Calc. Creatinine Clearance 104 mL/min (70-130); Calcium 8.6 mg/dL (7.8-10.44); Carbon Dioxide 26 mmol/L (23-31); Chloride 105 mmol/L (98-107); Estimated GFR-MDRD 82; Globulin 3.2 g/dL (2.4-3.5); Glucose 102 mg/dL (80-115); Phosphorus 2.8 mg/dL (2.3-4.7); Potassium 3.8 mmol/L (3.5-5.1); Protein, Total 6.8 g/dL (5.8-8.1); Sodium 140 mmol/L (136-145)
[2020-02-21] MEDS: Vancomycin HCl 1.25 GM in Sodium Chloride 0.9% 250 ML 250 ML IVPB SCH ×3 (02:49→18:11)
[2020-02-21 02:55] LABS: Band 32 % (5-11); Hemoglobin 10.3 g/dL (14.0-18.0); Hypochromia SLIGHT = 6-15 cells (100X) (0-5/hpf); Lymphocytes 23 % (21-51); MDiff Complete? YES; Mean Corpuscular HGB CONC 32.2 g/dL (32.0-36.0); Mean Corpuscular Hemoglobin 33.9 pg (27.0-31.0); Mean Platelet Volume 9.9 fL (7.4-10.4); Monocytes 13 % (0-10); Neutrophil 32 % (42-75); Platelet Count 208 thou/uL (130-400); Platelet Morphology Comment Appears Adequate; RBC Distribution Width 15.1 % (11.5-14.5); Red Blood Cell (RBC) Count 3.03 mill/uL (4.70-6.10); White Blood Cell (WBC) Count 8.5 thou/uL (4.8-10.8)
[2020-02-21] MEDS: Acetaminophen 325 MG TAB PO PRN ×2 (03:03→10:09)
[2020-02-21] MEDS: Mometasone 100 MCG/PUFF (1 INHALER) INH SCH ×2 (05:44→12:13)
[2020-02-21] MEDS ORDERED: Magnesium 2 GM/50 ML 2 GM in Premix Bag 1 BAG IVPB SCH (06:30)
[2020-02-21] MEDS: guaiFENesin ER 600 MG TAB PO SCH ×2 (08:35→20:17)
[2020-02-21] MEDS: Enoxaparin Sodium 60 MG/0.6 ML SYRINGE SC SCH (08:35)
[2020-02-21] MEDS: Aspirin 81 mg Enteric Coated Tablet PO SCH (08:36)
[2020-02-21] MEDS: Dexamethasone 4 MG TAB PO SCH (08:36)
[2020-02-21] MEDS: Albuterol 200 PUFF (6.7GM INHALER) INH PRN (12:13)
[2020-02-21] MEDS: HumaLOG 300 UNITS/3 ML VIAL SC PRN (18:15)
[2020-02-21] MEDS: Tamsulosin HCl 0.4 MG CAP PO SCH (20:17)
[2020-02-21] MEDS: REMDESIVIR (EUA) 100 MG in Sodium Chloride 0.9% 250 ML 230 ML IV SCH (20:17)
--- NOTE | 2020-02-21 23:05 | PDOC.HOSPP ---
- Subjective Encounter Date: 02/21/20 Encounter Time: 18:30 Subjective: Patient seen and examined for respiratory failure with COVID-19. Mentation slowly improving. On Remdesivir. Due to increased O2 requirement patient was started on high flow. - Objective Vital Signs & Weight: Vital Signs (12 hours) Temp Pulse Resp BP Pulse Ox 02/21/20 19:49 98.3 F 84 24 H 141/64 H 94 L 02/21/20 15:20 98.3 F 90 12 128/74 95 02/21/20 12:40 93 L Weight Admit Weight 204 lb 6.4 oz Weight 204 lb 6.4 oz I&O: 02/20/20 02/21/20 02/22/20 06:59 06:59 06:59 Intake Total 360 1490 870 Output Total 700 1375 600 Balance -340 115 270 Result Diagrams: 02/22/20 02:19 02/22/20 02:19 Additional Labs: Accuchecks 02/21/20 02/21/20 02/21/20 20:27 16:37 10:54 POC Glucose 198 H 198 H 144 H 02/21/20 02/20/20 05:52 17:56 POC Glucose 92 161 H Laboratory Tests 02/20/20 02/21/20 02/21/20 06:35 02:02 02:02 D-Dimer 1.45 H Iron 33 L TIBC 200 L Ferritin 711.90 H Radiology Reviewed by me: Yes (Chest x-raypneumonia) EKG Reviewed by me: Yes (Sinus rhythm on telemetry) Hospitalist ROS - Review of Systems Respiratory: reports: cough, dry, shortness of breath, SOB with excertion Cardiovascular: denies: chest pain, palpitations, orthopnea, paroxysmal noc. dyspnea, edema, light headedness, other Gastrointestinal: denies: nausea, vomiting, abdominal pain, diarrhea, constipation, melena, hematochezia, other - Medication Medications: Active Medications Generic Name Dose Route Start Last Admin Trade Name Freq PRN Reason Stop Dose Admin Acetaminophen 650 mg 02/19/20 16:19 02/21/20 10:09 Tylenol PO 650 mg Q4H PRN Administration Headache/Fever/Mild Pain (1-3) Albuterol Sulfate 2 puff 02/20/20 02:27 09/05/20 02:53 Proventil Hfa INH 2 puff Q4H PRN Administration SOB &/or Wheezing Aspirin 81 mg 02/21/20 09:00 02/21/20 08:36 Ecotrin PO 81 mg DAILY AURA Administration Dexamethasone 10 mg 02/20/20 08:00 02/21/20 08:36 Decadron PO 10 mg QAM-WM AURA Administration Enoxaparin Sodium 60 mg 02/20/20 09:00 02/21/20 08:35 Lovenox SC 60 mg 0900 AURA Administration Guaifenesin 600 mg 02/19/20 21:00 02/21/20 20:17 Mucinex PO 600 mg Q12HR AURA Administration Cefepime HCl 1 gm/ Sodium 100 mls @ 200 mls/hr 02/20/20 01:00 02/21/20 12:13 Chloride IVPB 100 mls 0100,1300 AURA Administration Remdesivir 100 mg/ Sodium 250 mls @ 250 mls/hr 02/21/20 20:00 02/21/20 20:17 Chloride IV 02/24/20 20:59 250 mls 2000 AURA Administration Vancomycin HCl 1.25 gm/ Sodium 250 mls @ 166.667 mls/hr 02/21/20 03:00 18:11 Chloride IVPB 250 mls 0300,1100,1900 AURA Administration Insulin Human Lispro 0 units 02/19/20 16:40 02/21/20 18:15 Humalog SC 2 unit .MODERATE SLIDING SC PRN Administration Moderate Correctional Scale Mometasone Furoate 100 mcg 02/20/20 18:30 02/21/20 12:13 Asmanex Hfa 100 Mcg INH 2 inh BID-RT AURA Administration Tamsulosin HCl 0.4 mg 02/20/20 21:00 02/21/20 20:17 Flomax PO 0.4 mg QPM AURA Administration - Exam General Appearance: ill appearing General - other findings: On high flow oxygen Neck: supple, no JVD Heart: RRR, no gallops, no rubs, normal peripheral pulses Respiratory: no wheezes, rales, rhonchi, tachypneic Gastrointestinal: soft, non-tender, normal bowel sounds, no guarding, no rigidity Extremities: no cyanosis, no clubbing Neurological: no new deficit Musculoskeletal: generalized weakness Psychiatric: somnolent Hosp A/P - Plan DVT proph w/lovenox, DVT proph w/SCDs Sepsis with acute hypoxic respiratory failure COVID-19 positive test (U07.1, COVID-19) with Acute Pneumonia 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 Monitor vancomycin level. On Remdesivir. Status post plasma. Continue sliding scale. Wean O2 as tolerated. Monitor inflammatory markers. Recheck labs in a.m. Continue Flomax and other medications as above. Resume home CPAP. 02/19 Continue vancomycin with cefepime. Monitor vancomycin level. Continue dexamethasone. Infectious disease consulted. Patient will probably benefit from Remdesivir and plasma. Continue sliding scale. Monitor inflammatory markers. Recheck labs in a.m. Replace magnesium. Plan discussed with patient and the spouse over the phone.
[2020-02-22] MEDS: Cefepime 1 GM in Sodium Chloride 0.9% 100 ML IVPB SCH ×2 (00:12→13:13)
[2020-02-22 02:56] LABS: Vancomycin, Trough 16.4 ug/mL
[2020-02-22 03:20] LABS: ALT (SGPT) 37 U/L (8-55); AST (SGOT) 40 U/L (5-34); Albumin 3.4 g/dL (3.4-4.8); Alkaline Phosphatase 65 U/L (40-110); Anion Gap 14 mmol/L (10-20); BUN (Urea Nitrogen) 23 mg/dL (8.4-25.7); Bilirubin, Total 0.4 mg/dL (0.2-1.2); CRP (Inflammatory) 8.17 mg/dL (= or < 0.5); Calc. Creatinine Clearance 108 mL/min (70-130); Calcium 8.3 mg/dL (7.8-10.44); Carbon Dioxide 23 mmol/L (23-31); Chloride 107 mmol/L (98-107); Estimated GFR-MDRD 87; Globulin 2.9 g/dL (2.4-3.5); Glucose 117 mg/dL (80-115); Magnesium 2.1 mg/dL (1.6-2.6); Phosphorus 3.1 mg/dL (2.3-4.7); Potassium 3.9 mmol/L (3.5-5.1); Protein, Total 6.3 g/dL (5.8-8.1); Sodium 140 mmol/L (136-145)
[2020-02-22 03:21] LABS: Band 12 % (5-11); Lymphocytes 33 % (21-51); MDiff Complete? YES; Mean Corpuscular Hemoglobin 34.3 pg (27.0-31.0); Mean Platelet Volume 10.3 fL (7.4-10.4); Metamyelocyte 11 % (0-0); Monocytes 14 % (0-10); Myelocyte 3 % (0-0); Neutrophil 25 % (42-75); Platelet Count 196 thou/uL (130-400); Platelet Morphology Comment Appears Adequate; RBC Distribution Width 15.2 % (11.5-14.5); Reactive Lymphocytes 2 % (0-10); Red Blood Cell (RBC) Count 2.91 mill/uL (4.70-6.10); White Blood Cell (WBC) Count 8.1 thou/uL (4.8-10.8)
[2020-02-22] MEDS: Vancomycin HCl 1.25 GM in Sodium Chloride 0.9% 250 ML 250 ML IVPB SCH ×2 (04:31→11:24)
[2020-02-22] MEDS: Mometasone 100 MCG/PUFF (1 INHALER) INH SCH ×2 (06:03→17:42)
[2020-02-22] MEDS: Enoxaparin Sodium 60 MG/0.6 ML SYRINGE SC SCH (07:49)
[2020-02-22] MEDS: Dexamethasone 4 MG TAB PO SCH (07:50)
[2020-02-22] MEDS: Aspirin 81 mg Enteric Coated Tablet PO SCH (07:50)
[2020-02-22] MEDS: guaiFENesin ER 600 MG TAB PO SCH ×2 (07:50→20:12)
[2020-02-22] MEDS: HumaLOG 300 UNITS/3 ML VIAL SC PRN (17:52)
[2020-02-22] MEDS: REMDESIVIR (EUA) 100 MG in Sodium Chloride 0.9% 250 ML 230 ML IV SCH (20:12)
[2020-02-22] MEDS: Tamsulosin HCl 0.4 MG CAP PO SCH (20:12)
--- NOTE | 2020-02-22 23:43 | PDOC.HOSPP ---
- Subjective Encounter Date: 02/22/20 Encounter Time: 17:00 Subjective: Patient seen and examined for respiratory failure due to COVID 19 pneumonia. Was on high flow oxygen this morning. At this time he is on 5 L oxygen nasal cannula. Shortness of breath improving. Mentation improving. Mild dry cough. - Objective Vital Signs & Weight: Vital Signs (12 hours) Temp Pulse Resp BP Pulse Ox 02/22/20 19:40 98.7 F 79 22 H 142/88 H 99 02/22/20 19:00 92 L 02/22/20 15:36 98.4 F 85 22 H 142/78 H 98 02/22/20 11:58 99 F 79 23 H 149/81 H 98 Weight Admit Weight 204 lb 6.4 oz Weight 204 lb 6.4 oz I&O: 02/21/20 02/22/20 02/23/20 06:59 06:59 06:59 Intake Total 1490 1560 1500 Output Total 1375 1350 1130 Balance 115 210 370 Result Diagrams: 02/22/20 02:19 02/22/20 02:19 Additional Labs: Accuchecks 02/22/20 02/22/20 02/22/20 20:25 17:51 11:38 POC Glucose 167 H 180 H 154 H EKG Reviewed by me: Yes (Sinus rhythm on telemetry) Hospitalist ROS - Review of Systems Constitutional: reports: weakness. denies: fever, chills, sweats, malaise, other Cardiovascular: denies: chest pain, palpitations, orthopnea, paroxysmal noc. dyspnea, edema, light headedness, other Gastrointestinal: denies: nausea, vomiting, abdominal pain, diarrhea, constipation, melena, hematochezia, other - Medication Medications: Active Medications Generic Name Dose Route Start Last Admin Trade Name Freq PRN Reason Stop Dose Admin Acetaminophen 650 mg 02/19/20 16:19 02/21/20 10:09 Tylenol PO 650 mg Q4H PRN Administration Headache/Fever/Mild Pain (1-3) Albuterol Sulfate 2 puff 02/20/20 02:27 02/20/20 02:53 Proventil Hfa INH 2 puff Q4H PRN Administration SOB &/or Wheezing Aspirin 81 mg 02/21/20 09:00 02/22/20 07:50 Ecotrin PO 81 mg DAILY AURA Administration Dexamethasone 10 mg 02/20/20 08:00 02/22/20 07:50 Decadron PO 10 mg QAM-WM AURA Administration Enoxaparin Sodium 60 mg 02/20/20 09:00 02/22/20 07:49 Lovenox SC 60 mg 0900 AURA Administration Guaifenesin 600 mg 02/19/20 21:00 02/22/20 20:12 Mucinex PO 600 mg Q12HR AURA Administration Remdesivir 100 mg/ Sodium 250 mls @ 250 mls/hr 02/21/20 20:00 02/22/20 20:12 Chloride IV 02/24/20 20:59 250 mls 2000 AURA Administration Insulin Human Lispro 0 units 02/19/20 16:40 02/22/20 17:52 Humalog SC 2 unit .MODERATE SLIDING SC PRN Administration Moderate Correctional Scale Mometasone Furoate 100 mcg 02/20/20 18:30 02/22/20 17:42 Asmanex Hfa 100 Mcg INH 1 inh BID-RT AURA Administration Tamsulosin HCl 0.4 mg 02/20/20 21:00 02/22/20 20:12 Flomax PO 0.4 mg QPM AURA Administration - Exam General Appearance: ill appearing Neck: supple, no JVD Heart: RRR, no gallops Respiratory: no wheezes, no ronchi Gastrointestinal: soft, non-tender, normal bowel sounds Extremities: no cyanosis Neurological: no new deficit Psychiatric: normal affect, A&O x 3 Hosp A/P (1) Sepsis with acute hypoxic respiratory failure Code(s): A41.9 - SEPSIS, UNSPECIFIED ORGANISM; R65.20 - SEVERE SEPSIS WITHOUT SEPTIC SHOCK; J96.01 - ACUTE RESPIRATORY FAILURE WITH HYPOXIA Status: Acute (2) Pneumonia due to COVID-19 virus Code(s): U07.1 - COVID-19; J12.89 - OTHER VIRAL PNEUMONIA Status: Acute (3) Chronic myelomonocytic leukemia Code(s): C93.10 - CHRONIC MYELOMONOCYTIC LEUKEMIA NOT ACHIEVE REMISSION Status : Acute (4) Hypomagnesemia Code(s): E83.42 - HYPOMAGNESEMIA Status: Acute (5) Anemia due to chronic kidney disease Code(s): N18.9 - CHRONIC KIDNEY DISEASE, UNSPECIFIED; D63.1 - ANEMIA IN CHRONIC KIDNEY DISEASE Status: Chronic (6) Benign prostatic hyperplasia Code(s): N40.0 - BENIGN PROSTATIC HYPERPLASIA WITHOUT LOWER URINRY TRACT SYMP Status: Chronic (7) Diabetes mellitus, type 2 Status: Chronic Qualifiers: Chronic kidney disease stage: stage 2 (mild) (8) Dyslipidemia Code(s): E78.5 - HYPERLIPIDEMIA, UNSPECIFIED Status: Chronic (9) Hypertension Code(s): I10 - ESSENTIAL (PRIMARY) HYPERTENSION Status: Chronic - Plan DVT proph w/lovenox 02/21 Continue to wean oxygen as tolerated. Patient currently on 5 L nasal cannula. S/p plasma. On Remdesivir with Decadron. Monitor inflammatory markers. Monitor LFTs. Continue sliding scale. Home CPAP tonight. A.m. labs. Continue other medications as above. Consult physical therapy 02/20 Continue dexamethasone along with vancomycin and cefepime. Monitor vancomycin level. On Remdesivir. Status post plasma. Continue sliding scale. Wean O2 as tolerated. Monitor inflammatory markers. Recheck labs in a.m. Continue Flomax and other medications as above. Resume home CPAP. 02/19 Continue vancomycin with cefepime. Monitor vancomycin level. Continue dexamethasone. Infectious disease consulted. Patient will probably benefit from Remdesivir and plasma. Continue sliding scale. Monitor inflammatory markers. Recheck labs in a.m. Replace magnesium. Plan discussed with patient and the spouse over the phone.
[2020-02-23 05:12] LABS: Magnesium 1.8 mg/dL (1.6-2.6); Phosphorus 2.7 mg/dL (2.3-4.7)
[2020-02-23 05:14] LABS: Anion Gap 13 mmol/L (10-20); BUN (Urea Nitrogen) 19 mg/dL (8.4-25.7); CRP (Inflammatory) 3.49 mg/dL (= or < 0.5); Calc. Creatinine Clearance 118 mL/min (70-130); Calcium 8.1 mg/dL (7.8-10.44); Carbon Dioxide 24 mmol/L (23-31); Chloride 107 mmol/L (98-107); Estimated GFR-MDRD Greater than 90; Glucose 104 mg/dL (80-115); Potassium 3.7 mmol/L (3.5-5.1); Sodium 140 mmol/L (136-145)
[2020-02-23 05:16] LABS: ALT (SGPT) 58 U/L (8-55); AST (SGOT) 41 U/L (5-34); Albumin 3.1 g/dL (3.4-4.8); Alkaline Phosphatase 60 U/L (40-110); Bilirubin, Direct 0.2 mg/dL (0.1-0.3); Bilirubin, Total 0.3 mg/dL (0.2-1.2); Protein, Total 6.2 g/dL (5.8-8.1)
[2020-02-23] MEDS: Mometasone 100 MCG/PUFF (1 INHALER) INH SCH ×2 (05:45→17:31)
[2020-02-23] MEDS ORDERED: Magnesium 2 GM/50 ML 2 GM in Premix Bag 1 BAG IVPB SCH (06:30)
[2020-02-23] MEDS: guaiFENesin ER 600 MG TAB PO SCH ×2 (08:21→20:26)
[2020-02-23] MEDS: Multivit, Therapeutic 1 TAB PO SCH (08:21)
[2020-02-23] MEDS: Aspirin 81 mg Enteric Coated Tablet PO SCH (08:21)
[2020-02-23] MEDS: Dexamethasone 4 MG TAB PO SCH (08:21)
[2020-02-23] MEDS: Ascorbic Acid 500 mg Chewable Tablet PO SCH (08:21)
[2020-02-23] MEDS: Enoxaparin Sodium 60 MG/0.6 ML SYRINGE SC SCH (08:22)
--- NOTE | 2020-02-23 13:21 | PDOC.HOSPP ---
- Subjective Encounter Date: 02/23/20 Subjective: Doing very well overall. Breathing relatively comfortably. He would like to build to get up and go to the bathroom without having to call the nurses. Occasionally has a bit of urgency with the need to void. Has several questions regarding his long-term prognosis. Patient reports prior to this he was able to get up on a stationary bike and go for an hour and a half without being significantly short of breath. - Objective Vital Signs & Weight: Vital Signs (12 hours) Temp Pulse Resp BP Pulse Ox 02/23/20 11:35 98.9 F 80 16 155/70 H 94 L 02/23/20 09:00 92 L 02/23/20 08:40 98.1 F 78 40 H 135/74 90 L 02/23/20 03:40 135/82 02/23/20 03:25 100.4 F H 79 24 H 96 Weight Admit Weight 204 lb 6.4 oz Weight 204 lb 6.4 oz I&O: 02/22/20 02/23/20 02/24/20 06:59 06:59 06:59 Intake Total 1560 2170 Output Total 1350 1730 225 Balance 210 440 -225 Result Diagrams: 02/22/20 02:19 02/23/20 04:31 Additional Labs: Accuchecks 02/23/20 02/22/20 02/22/20 10:51 20:25 17:51 POC Glucose 131 H 167 H 180 H Hospitalist ROS - Medication Medications: Active Medications Generic Name Dose Route Start Last Admin Trade Name Freq PRN Reason Stop Dose Admin Acetaminophen 650 mg 02/19/20 16:19 02/21/20 10:09 Tylenol PO 650 mg Q4H PRN Administration Headache/Fever/Mild Pain (1-3) Albuterol Sulfate 2 puff 02/20/20 02:27 02/20/20 02:53 Proventil Hfa INH 2 puff Q4H PRN Administration SOB &/or Wheezing Ascorbic Acid 1,000 mg 02/23/20 09:00 02/23/20 08:21 Vitamin C PO 1,000 mg DAILY AURA Administration Aspirin 81 mg 02/21/20 09:00 02/23/20 08:21 Ecotrin PO 81 mg DAILY AURA Administration Dexamethasone 10 mg 02/20/20 08:00 02/23/20 08:21 Decadron PO 10 mg QAM-WM AURA Administration Enoxaparin Sodium 60 mg 02/20/20 09:00 02/23/20 08:22 Lovenox SC 60 mg 0900 AURA Administration Guaifenesin 600 mg 02/19/20 21:00 02/23/20 08:21 Mucinex PO 600 mg Q12HR AURA Administration Remdesivir 100 mg/ Sodium 250 mls @ 250 mls/hr 02/21/20 20:00 02/22/20 20:12 Chloride IV 02/24/20 20:59 250 mls 2000 AURA Administration Insulin Human Lispro 0 units 02/19/20 16:40 02/22/20 17:52 Humalog SC 2 unit .MODERATE SLIDING SC PRN Administration Moderate Correctional Scale Mometasone Furoate 100 mcg 02/20/20 18:30 02/23/20 05:45 Asmanex Hfa 100 Mcg INH 1 inh BID-RT AURA Administration Multivitamins 1 tab 02/23/20 09:00 02/23/20 08:21 Theragran PO 1 tab DAILY AURA Administration Sodium Chloride 10 ml 02/23/20 09:00 02/23/20 08:22 Flush - Normal Saline IVF 10 ml Q12HR AURA Administration Tamsulosin HCl 0.4 mg 02/20/20 21:00 02/22/20 20:12 Flomax PO 0.4 mg QPM AURA Administration - Exam General Appearance: NAD, awake alert Heart: RRR, no murmur, no gallops, no rubs, normal peripheral pulses Respiratory: CTAB, no wheezes, no rales, no ronchi, normal chest expansion, no tachypnea, normal percussion Gastrointestinal: soft, non-tender, non-distended, normal bowel sounds, no palpable masses, no hepatomegaly, no splenomegaly, no bruit Extremities: no cyanosis, no clubbing, no edema Skin: normal turgor, no lesions, no rashes Neurological: cranial nerve grossly intact, normal sensation to touch, no weakness, no focal deficits, no new deficit Psychiatric: normal affect, normal behavior, A&O x 3 Hosp A/P (1) Sepsis with acute hypoxic respiratory failure Code(s): A41.9 - SEPSIS, UNSPECIFIED ORGANISM; R65.20 - SEVERE SEPSIS WITHOUT SEPTIC SHOCK; J96.01 - ACUTE RESPIRATORY FAILURE WITH HYPOXIA Status: Acute (2) Pneumonia due to COVID-19 virus Code(s): U07.1 - COVID-19; J12.89 - OTHER VIRAL PNEUMONIA Status: Acute (3) Chronic myelomonocytic leukemia Code(s): C93.10 - CHRONIC MYELOMONOCYTIC LEUKEMIA NOT ACHIEVE REMISSION Status : Acute (4) Benign prostatic hyperplasia Code(s): N40.0 - BENIGN PROSTATIC HYPERPLASIA WITHOUT LOWER URINRY TRACT SYMP Status: Chronic (5) Diabetes mellitus, type 2 Status: Chronic Qualifiers: Chronic kidney disease stage: stage 2 (mild) (6) Dyslipidemia Code(s): E78.5 - HYPERLIPIDEMIA, UNSPECIFIED Status: Chronic (7) Hypertension Code(s): I10 - ESSENTIAL (PRIMARY) HYPERTENSION Status: Chronic - Plan Acute hypoxic respiratory failure: Patient still requiring about 5 L of nasal cannula oxygen. He is feeling generally better. Continue with current treatment and weaning oxygen as tolerated. COVID-19 pneumonia: Continue with Remdesivir and Decadron. Seems to be improving. Do not see an indication for antibiotics. Will discuss with ID regarding termination of those. Overall inflammatory markers are improved. CML: Stable however certainly puts the patient at higher risk due to the COVID. He is not neutropenic. BPH: Continue tamsulosin. Diabetes mellitus: Blood sugars generally well controlled. No change Hypertension: Blood pressure running a bit high. We will add back his amlodipine from home. Hyperlipidemia: We will resume his home regimen of rosuvastatin. DVT prophylaxis: Lovenox and SCD's. PUD prophylaxis: Add PPI given the fact that he remains on steroids.
[2020-02-23] MEDS: Tamsulosin HCl 0.4 MG CAP PO SCH (20:26)
[2020-02-23] MEDS: Zinc Sulfate 220 MG CAP PO SCH (20:27)
[2020-02-23] MEDS: REMDESIVIR (EUA) 100 MG in Sodium Chloride 0.9% 250 ML 230 ML IV SCH (20:27)
[2020-02-23] MEDS: Albuterol 200 PUFF (6.7GM INHALER) INH PRN (20:31)
[2020-02-24 05:04] LABS: Anion Gap 15 mmol/L (10-20); BUN (Urea Nitrogen) 16 mg/dL (8.4-25.7); CRP (Inflammatory) 3.99 mg/dL (= or < 0.5); Calc. Creatinine Clearance 119 mL/min (70-130); Carbon Dioxide 23 mmol/L (23-31); Chloride 107 mmol/L (98-107); Estimated GFR-MDRD Greater than 90; Glucose 97 mg/dL (80-115); Potassium 3.7 mmol/L (3.5-5.1); Sodium 141 mmol/L (136-145)
[2020-02-24 05:12] LABS: ALT (SGPT) 46 U/L (8-55); AST (SGOT) 28 U/L (5-34); Albumin 3.2 g/dL (3.4-4.8); Alkaline Phosphatase 65 U/L (40-110); Bilirubin, Direct 0.2 mg/dL (0.1-0.3); Bilirubin, Total 0.4 mg/dL (0.2-1.2); Protein, Total 6.1 g/dL (5.8-8.1)
[2020-02-24] MEDS: Mometasone 100 MCG/PUFF (1 INHALER) INH SCH ×2 (05:26→19:59)
[2020-02-24] MEDS: Enoxaparin Sodium 60 MG/0.6 ML SYRINGE SC SCH ×2 (08:22→20:01)
[2020-02-24] MEDS: Ascorbic Acid 500 mg Chewable Tablet PO SCH (08:23)
[2020-02-24] MEDS: Aspirin 81 mg Enteric Coated Tablet PO SCH (08:23)
[2020-02-24] MEDS: guaiFENesin ER 600 MG TAB PO SCH ×2 (08:23→20:02)
[2020-02-24] MEDS: Dexamethasone 4 MG TAB PO SCH (08:23)
[2020-02-24] MEDS: Multivit, Therapeutic 1 TAB PO SCH (08:23)
[2020-02-24] MEDS: Acetaminophen 325 MG TAB PO PRN (08:46)
[2020-02-24] MEDS ORDERED: Dexamethasone 4 MG TAB PO SCH ×2 (09:11→09:15)
--- NOTE | 2020-02-24 16:09 | PDOC.MOPN ---
Interval History: Patient alert, breathing better. Fever last night. - Vital Signs Vital Signs: Vital Signs (12 hours) Temp Pulse Resp BP Pulse Ox 02/24/20 11:11 99.7 F H 86 22 H 163/81 H 97 02/24/20 08:00 100.2 F H 74 23 H 142/75 H 91 L 02/24/20 04:30 99.2 F 76 26 H 140/88 94 L Weight Admit Weight 204 lb 6.4 oz Weight 204 lb 6.4 oz - Physical Exam General: Alert Neurological: Normal speech - Labs Result Diagrams: 02/22/20 02:19 02/24/20 04:26 Lab results: Laboratory Results - last 24 hr 02/24/20 10:24: POC Glucose 163 H 02/24/20 05:47: POC Glucose 109 02/24/20 04:26: D-Dimer 0.83 H 02/24/20 04:26: Total Bilirubin 0.4, Direct Bilirubin 0.2, AST 28, ALT 46, Alkaline Phosphatase 65, Serum Total Protein 6.1, Albumin 3.2 L 02/24/20 04:26: Sodium 141, Potassium 3.7, Chloride 107, Carbon Dioxide 23, Anion Gap 15, BUN 16, Creatinine 0.80, Estimated GFR (MDRD) Greater than 90, Glucose 97, Calcium 8.0, C-Reactive Protein 3.99 H 02/24/20 04:26: Ferritin 424.25 H 02/24/20 04:26: Phosphorus 3.0 02/23/20 20:40: POC Glucose 137 H 02/23/20 16:40: POC Glucose 204 H Status: lab reviewed by me A/P - Problem (1) Chronic myelomonocytic leukemia Current Visit: Yes Code(s): C93.10 - CHRONIC MYELOMONOCYTIC LEUKEMIA NOT ACHIEVE REMISSION Status: Acute (2) Pneumonia due to COVID-19 virus Current Visit: Yes Code(s): U07.1 - COVID-19; J12.89 - OTHER VIRAL PNEUMONIA Status: Acute - Plan Plan: Patient examined by telephone denies any SOB but fever last night CBC stable supportive care chemo held until recovered.
--- NOTE | 2020-02-24 17:53 | PRG ---
DATE OF SERVICE: 02/24/2020 SUBJECTIVE: Feeling better. He has downgraded his O2 supplementation requirement to nasal cannula O2 at 6 L. He is satting 98 while at rest. He is able to eat better now and is not having diarrhea; less cough. OBJECTIVE: VITAL SIGNS: T-max 100.2, BP 150/78, pulse 77, respiratory rate 22, and O2 saturation 98 on 6 L. GENERAL: Awake, alert, and oriented. LUNGS: Fairly clear. HEART: S1, S2. Regular rate. ABDOMEN: Soft, not distended. EXTREMITIES: Moves all extremities equally. LABORATORY DATA: Sodium 141, creatinine 0.8. Liver profile normal. Ferritin 424, which is down. CRP is down as well from admission. ASSESSMENT/DISCUSSION: Leukemia/myelodysplastic syndrome, on chemotherapy. COVID infection, [id number] manifestation, now seems to be improving with less requirement of O2 supplementation and decrease in the inflammatory markers. He is receiving Decadron and is finishing up the Remdesivir. He had a plasma, so we will see how he does going forward, looks like he is getting better. Job ID: [id number]
[2020-02-24] MEDS: REMDESIVIR (EUA) 100 MG in Sodium Chloride 0.9% 250 ML 230 ML IV SCH (20:00)
[2020-02-24] MEDS: Tamsulosin HCl 0.4 MG CAP PO SCH (20:01)
[2020-02-24] MEDS: Famotidine 20 MG TAB PO SCH (20:01)
[2020-02-24] MEDS: Zinc Sulfate 220 MG CAP PO SCH (20:01)
--- NOTE | 2020-02-24 23:12 | PDOC.HOSPP ---
- Subjective Encounter Date: 02/24/20 Subjective: Had a difficult night with low sats. Didn't feel worse or more SOB. Since then , he has felt much better today. Feels like he is taking deep breaths. Still has the urge to cough with deep breathing. - Objective Vital Signs & Weight: Vital Signs (12 hours) Temp Pulse Resp BP BP Pulse Ox 02/24/20 20:00 98.5 F 81 20 165/88 H 98 02/24/20 15:24 98.3 F 77 22 H 150/78 H 92 L 02/24/20 11:11 99.7 F H 86 22 H 163/81 H 97 Weight Admit Weight 204 lb 6.4 oz Weight 204 lb 6.4 oz I&O: 02/23/20 02/24/20 02/25/20 06:59 06:59 06:59 Intake Total 2170 1194 1200 Output Total 1730 1875 Balance 440 -681 1200 Result Diagrams: 02/22/20 02:19 02/24/20 04:26 Additional Labs: Accuchecks 02/24/20 02/24/20 02/24/20 16:59 10:24 05:47 POC Glucose 187 H 163 H 109 Hospitalist ROS - Medication Medications: Active Medications Generic Name Dose Route Start Last Admin Trade Name Freq PRN Reason Stop Dose Admin Acetaminophen 650 mg 02/19/20 16:19 02/24/20 08:46 Tylenol PO 650 mg Q4H PRN Administration Headache/Fever/Mild Pain (1-3) Albuterol Sulfate 2 puff 02/20/20 02:27 02/23/20 20:31 Proventil Hfa INH 2 puff Q4H PRN Administration SOB &/or Wheezing Ascorbic Acid 1,000 mg 02/23/20 09:00 02/24/20 08:23 Vitamin C PO 1,000 mg DAILY AURA Administration Aspirin 81 mg 02/21/20 09:00 02/24/20 08:23 Ecotrin PO 81 mg DAILY AURA Administration Enoxaparin Sodium 60 mg 02/24/20 21:00 02/24/20 20:01 Lovenox SC 60 mg BID AURA Administration Famotidine 20 mg 02/24/20 21:00 02/24/20 20:01 Pepcid PO 20 mg BID AURA Administration Guaifenesin 600 mg 02/19/20 21:00 02/24/20 20:02 Mucinex PO 600 mg Q12HR AURA Administration Insulin Human Lispro 0 units 02/19/20 16:40 02/22/20 17:52 Humalog SC 2 unit .MODERATE SLIDING SC PRN Administration Moderate Correctional Scale Mometasone Furoate 100 mcg 02/20/20 18:30 02/24/20 19:59 Asmanex Hfa 100 Mcg INH 100 mcg BID-RT AURA Administration Multivitamins 1 tab 02/23/20 09:00 02/24/20 08:23 Theragran PO 1 tab DAILY AURA Administration Sodium Chloride 10 ml 02/23/20 09:00 02/24/20 20:02 Flush - Normal Saline IVF 10 ml Q12HR AURA Administration Tamsulosin HCl 0.4 mg 02/20/20 21:00 02/24/20 20:01 Flomax PO 0.4 mg QPM AURA Administration Zinc Sulfate 220 mg 02/23/20 21:00 02/24/20 20:01 Zinc Sulfate PO 220 mg HS AURA Administration - Exam General Appearance: NAD, awake alert Neck: supple, symmetric, no JVD, no thyromegaly, no lymphadenopathy, no carotid bruit Heart: RRR, no murmur, no gallops, no rubs, normal peripheral pulses Respiratory: CTAB, no wheezes, no rales, no ronchi, normal chest expansion, no tachypnea, normal percussion Gastrointestinal: soft, non-tender, non-distended, normal bowel sounds, no palpable masses, no hepatomegaly, no splenomegaly, no bruit Extremities: no cyanosis, no clubbing, no edema Skin: normal turgor, no lesions, no rashes Neurological: cranial nerve grossly intact, normal sensation to touch, no weakness, no focal deficits, no new deficit Musculoskeletal: normal tone, normal strength, no muscle wasting Psychiatric: normal affect, normal behavior, A&O x 3 Hosp A/P (1) Sepsis with acute hypoxic respiratory failure Code(s): A41.9 - SEPSIS, UNSPECIFIED ORGANISM; R65.20 - SEVERE SEPSIS WITHOUT SEPTIC SHOCK; J96.01 - ACUTE RESPIRATORY FAILURE WITH HYPOXIA Status: Acute (2) Pneumonia due to COVID-19 virus Code(s): U07.1 - COVID-19; J12.89 - OTHER VIRAL PNEUMONIA Status: Acute (3) Chronic myelomonocytic leukemia Code(s): C93.10 - CHRONIC MYELOMONOCYTIC LEUKEMIA NOT ACHIEVE REMISSION Status : Acute (4) Benign prostatic hyperplasia Code(s): N40.0 - BENIGN PROSTATIC HYPERPLASIA WITHOUT LOWER URINRY TRACT SYMP Status: Chronic (5) Diabetes mellitus, type 2 Status: Chronic Qualifiers: Chronic kidney disease stage: stage 2 (mild) (6) Dyslipidemia Code(s): E78.5 - HYPERLIPIDEMIA, UNSPECIFIED Status: Chronic (7) Hypertension Code(s): I10 - ESSENTIAL (PRIMARY) HYPERTENSION Status: Chronic - Plan Acute hypoxic respiratory failure: Patient still requiring about 5 L of nasal cannula oxygen. He is feeling generally better. Continue with current treatment and weaning oxygen as tolerated. He was up and walking in the room with PT today and looked great. Did not appear SOB at all and sats were strong on the oxygen. COVID-19 pneumonia: Continue with Remdesivir and Decadron. Seems to be improving. Do not see an indication for antibiotics. Will discuss with ID regarding termination of those. Overall inflammatory markers are improved. CML: Stable however certainly puts the patient at higher risk due to the COVID. He is not neutropenic. BPH: Continue tamsulosin. Diabetes mellitus: Blood sugars generally well controlled. No change Hypertension: Blood pressure running a bit high. We will add back his amlodipine from home. Hyperlipidemia: We will resume his home regimen of rosuvastatin. DVT prophylaxis: Lovenox and SCD's. PUD prophylaxis: Add PPI given the fact that he remains on steroids. Disposition: He can likely return home when his oxygen requirements are such that it can be supplied at home.
[2020-02-25 05:56] LABS: Anion Gap 13 mmol/L (10-20); BUN (Urea Nitrogen) 15 mg/dL (8.4-25.7); CRP (Inflammatory) 5.57 mg/dL (= or < 0.5); Calc. Creatinine Clearance 103 mL/min (70-130); Calcium 8.2 mg/dL (7.8-10.44); Carbon Dioxide 26 mmol/L (23-31); Chloride 105 mmol/L (98-107); Estimated GFR-MDRD Greater than 90; Glucose 98 mg/dL (80-115); Potassium 3.7 mmol/L (3.5-5.1); Sodium 140 mmol/L (136-145)
[2020-02-25] MEDS: Mometasone 100 MCG/PUFF (1 INHALER) INH SCH ×2 (06:07→18:19)
[2020-02-25] MEDS: Enoxaparin Sodium 60 MG/0.6 ML SYRINGE SC SCH ×2 (09:17→21:39)
[2020-02-25] MEDS: Ascorbic Acid 500 mg Chewable Tablet PO SCH (09:17)
[2020-02-25] MEDS: Aspirin 81 mg Enteric Coated Tablet PO SCH (09:18)
[2020-02-25] MEDS: guaiFENesin ER 600 MG TAB PO SCH ×2 (09:18→21:39)
[2020-02-25] MEDS: Dexamethasone 4 MG TAB PO SCH (09:18)
[2020-02-25] MEDS: Multivit, Therapeutic 1 TAB PO SCH (09:18)
[2020-02-25] MEDS: Famotidine 20 MG TAB PO SCH ×2 (09:18→21:39)
--- NOTE | 2020-02-25 17:22 | PDOC.HOSPP ---
- Subjective Encounter Date: 02/25/20 Subjective: He continues to do well today. Feels like he is breathing generally well. Appetite is good. Walking in the room. - Objective Vital Signs & Weight: Vital Signs (12 hours) Temp Pulse Resp BP Pulse Ox 02/25/20 15:30 98.4 F 81 20 138/81 98 02/25/20 12:00 99.2 F 84 20 157/84 H 100 02/25/20 09:40 96 02/25/20 09:35 98.2 F 81 22 H 137/79 96 02/25/20 06:38 95 Weight Admit Weight 204 lb 6.4 oz Weight 179 lb 6.4 oz I&O: 02/24/20 02/25/20 02/26/20 06:59 06:59 06:59 Intake Total 1194 2200 720 Output Total 1875 1250 Balance -681 950 720 Result Diagrams: 02/22/20 02:19 02/25/20 03:30 Additional Labs: Accuchecks 02/25/20 12:27 POC Glucose 146 H Hospitalist ROS - Medication Medications: Active Medications Generic Name Dose Route Start Last Admin Trade Name Freq PRN Reason Stop Dose Admin Acetaminophen 650 mg 02/19/20 16:19 02/24/20 08:46 Tylenol PO 650 mg Q4H PRN Administration Headache/Fever/Mild Pain (1-3) Albuterol Sulfate 2 puff 02/20/20 02:27 02/23/20 20:31 Proventil Hfa INH 2 puff Q4H PRN Administration SOB &/or Wheezing Ascorbic Acid 1,000 mg 02/23/20 09:00 02/25/20 09:17 Vitamin C PO 1,000 mg DAILY AURA Administration Aspirin 81 mg 02/21/20 09:00 02/25/20 09:18 Ecotrin PO 81 mg DAILY AURA Administration Dexamethasone 6 mg 02/25/20 08:00 02/25/20 09:18 Decadron PO 6 mg QAM-WM AURA Administration Enoxaparin Sodium 60 mg 02/24/20 21:00 02/25/20 09:17 Lovenox SC 60 mg BID AURA Administration Famotidine 20 mg 02/24/20 21:00 02/25/20 09:18 Pepcid PO 20 mg BID AURA Administration Guaifenesin 600 mg 02/19/20 21:00 02/25/20 09:18 Mucinex PO 600 mg Q12HR AURA Administration Insulin Human Lispro 0 units 02/19/20 16:40 02/22/20 17:52 Humalog SC 2 unit .MODERATE SLIDING SC PRN Administration Moderate Correctional Scale Mometasone Furoate 100 mcg 02/20/20 18:30 02/25/20 06:07 Asmanex Hfa 100 Mcg INH 100 mcg BID-RT AURA Administration Multivitamins 1 tab 02/23/20 09:00 02/25/20 09:18 Theragran PO 1 tab DAILY AURA Administration Sodium Chloride 10 ml 02/23/20 09:00 02/25/20 09:19 Flush - Normal Saline IVF 10 ml Q12HR AURA Administration Tamsulosin HCl 0.4 mg 02/20/20 21:00 02/24/20 20:01 Flomax PO 0.4 mg QPM AURA Administration Zinc Sulfate 220 mg 02/23/20 21:00 02/24/20 20:01 Zinc Sulfate PO 220 mg HS AURA Administration - Exam General Appearance: NAD, awake alert Heart: RRR, no murmur, no gallops, no rubs, normal peripheral pulses Respiratory: CTAB, no wheezes, no rales, no ronchi, normal chest expansion, no tachypnea, normal percussion Gastrointestinal: soft, non-tender, non-distended, normal bowel sounds, no palpable masses, no hepatomegaly, no splenomegaly, no bruit Extremities: no cyanosis, no clubbing, no edema Skin: normal turgor, no lesions, no rashes Neurological: cranial nerve grossly intact, normal sensation to touch, no weakness, no focal deficits, no new deficit Musculoskeletal: normal tone, normal strength, no muscle wasting Psychiatric: normal affect, normal behavior, A&O x 3 Hosp A/P (1) Sepsis with acute hypoxic respiratory failure Code(s): A41.9 - SEPSIS, UNSPECIFIED ORGANISM; R65.20 - SEVERE SEPSIS WITHOUT SEPTIC SHOCK; J96.01 - ACUTE RESPIRATORY FAILURE WITH HYPOXIA Status: Acute (2) Pneumonia due to COVID-19 virus Code(s): U07.1 - COVID-19; J12.89 - OTHER VIRAL PNEUMONIA Status: Acute (3) Chronic myelomonocytic leukemia Code(s): C93.10 - CHRONIC MYELOMONOCYTIC LEUKEMIA NOT ACHIEVE REMISSION Status : Acute (4) Benign prostatic hyperplasia Code(s): N40.0 - BENIGN PROSTATIC HYPERPLASIA WITHOUT LOWER URINRY TRACT SYMP Status: Chronic (5) Diabetes mellitus, type 2 Status: Chronic Qualifiers: Chronic kidney disease stage: stage 2 (mild) (6) Dyslipidemia Code(s): E78.5 - HYPERLIPIDEMIA, UNSPECIFIED Status: Chronic (7) Hypertension Code(s): I10 - ESSENTIAL (PRIMARY) HYPERTENSION Status: Chronic - Plan Acute hypoxic respiratory failure: Patient still requiring about 5 L of nasal cannula oxygen. He is feeling generally better. Continue with current treatment and weaning oxygen as tolerated. He was up and walking in the room with PT today and looked great. Patient reports he a BiPAP machine. If we can keep him consistently at 5 L of oxygen will likely be able to get him home soon. COVID-19 pneumonia: He has completed convalescent plasma infusion and Remdesivir. Continue Decadron. Seems to be improving. CML: Stable. Oncology following. Treatment on hold until he recovers from the COVID. BPH: Continue tamsulosin. Diabetes mellitus: Blood sugars generally well controlled. No change Hypertension: Blood pressure running a bit high. We will add back his amlodipine from home. Hyperlipidemia: rosuvastatin. DVT prophylaxis: Lovenox and SCD's. PUD prophylaxis: Add PPI given the fact that he remains on steroids. Disposition: He can likely return home when his oxygen requirements are such that it can be supplied at home.
[2020-02-25] MEDS: Tamsulosin HCl 0.4 MG CAP PO SCH (21:39)
[2020-02-25] MEDS: Zinc Sulfate 220 MG CAP PO SCH (21:40)
[2020-02-26 05:38] LABS: Anion Gap 14 mmol/L (10-20); BUN (Urea Nitrogen) 15 mg/dL (8.4-25.7); Calc. Creatinine Clearance 107 mL/min (70-130); Calcium 8.1 mg/dL (7.8-10.44); Carbon Dioxide 26 mmol/L (23-31); Chloride 104 mmol/L (98-107); Estimated GFR-MDRD Greater than 90; Glucose 93 mg/dL (80-115); Potassium 3.8 mmol/L (3.5-5.1); Sodium 140 mmol/L (136-145)
[2020-02-26] MEDS: Mometasone 100 MCG/PUFF (1 INHALER) INH SCH ×2 (08:55→17:57)
[2020-02-26] MEDS: Famotidine 20 MG TAB PO SCH ×2 (08:56→20:56)
[2020-02-26] MEDS: Aspirin 81 mg Enteric Coated Tablet PO SCH (08:56)
[2020-02-26] MEDS: Dexamethasone 4 MG TAB PO SCH (08:56)
[2020-02-26] MEDS: guaiFENesin ER 600 MG TAB PO SCH ×2 (08:56→20:57)
[2020-02-26] MEDS: Multivit, Therapeutic 1 TAB PO SCH (08:56)
[2020-02-26 08:57] LABS: Mean Corpuscular HGB CONC 31.9 g/dL (32.0-36.0); Mean Corpuscular Hemoglobin 33.6 pg (27.0-31.0); Mean Platelet Volume 10.1 fL (7.4-10.4); Platelet Count 179 thou/uL (130-400); RBC Distribution Width 15.4 % (11.5-14.5); Red Blood Cell (RBC) Count 2.68 mill/uL (4.70-6.10); White Blood Cell (WBC) Count 9.8 thou/uL (4.8-10.8)
[2020-02-26] MEDS: Ascorbic Acid 500 mg Chewable Tablet PO SCH (08:57)
[2020-02-26] MEDS: Enoxaparin Sodium 60 MG/0.6 ML SYRINGE SC SCH ×2 (09:01→20:56)
[2020-02-26 09:14] LABS: ALT (SGPT) 28 U/L (8-55); AST (SGOT) 18 U/L (5-34); Alkaline Phosphatase 62 U/L (40-110); Bilirubin, Direct 0.2 mg/dL (0.1-0.3); Bilirubin, Total 0.4 mg/dL (0.2-1.2); Protein, Total 6.2 g/dL (5.8-8.1)
[2020-02-26 09:24] LABS: Band 15 % (5-11); Eosinophils 2 % (0-10); Lymphocytes 18 % (21-51); MDiff Complete? YES; Macrocytosis SLIGHT = 6-15 cells (100X) (0-5/hpf); Metamyelocyte 10 % (0-0); Monocytes 11 % (0-10); Myelocyte 9 % (0-0); Neutrophil 35 % (42-75); Platelet Morphology Comment Appears Adequate; Polychromasia SLIGHT = 2-3 cells (100X) (0-2/hpf)
--- NOTE | 2020-02-26 16:15 | PDOC.HOSPP ---
- Subjective Encounter Date: 02/26/20 Subjective: Feels okay. He still has episodes at night when he has some increased shortness of breath. This primarily occurs around him trying to go to the bathroom. He generally disconnects his BiPAP mask to go to the bathroom and by the time he gets back he is feeling fairly short of breath. He is eager to go home but does not feel confident that he is quite ready for that at this time. - Objective Vital Signs & Weight: Vital Signs (12 hours) Temp Pulse Resp BP BP Pulse Ox 02/26/20 12:10 98.9 F 87 18 150/79 H 95 02/26/20 09:01 98.5 F 100 18 139/71 92 L 02/26/20 07:33 93 L 02/26/20 04:34 72 93 L Weight Admit Weight 204 lb 6.4 oz Weight 179 lb 6.4 oz I&O: 02/25/20 02/26/20 02/27/20 06:59 06:59 06:59 Intake Total 2200 3520 Output Total 1250 1650 Balance 950 1870 Result Diagrams: 02/26/20 08:37 02/26/20 04:43 Additional Labs: Accuchecks 02/26/20 02/25/20 02/25/20 10:44 20:59 18:15 POC Glucose 171 H 117 H 125 H Hospitalist ROS - Medication Medications: Active Medications Generic Name Dose Route Start Last Admin Trade Name Freq PRN Reason Stop Dose Admin Acetaminophen 650 mg 02/19/20 16:19 02/24/20 08:46 Tylenol PO 650 mg Q4H PRN Administration Headache/Fever/Mild Pain (1-3) Albuterol Sulfate 2 puff 02/20/20 02:27 02/23/20 20:31 Proventil Hfa INH 2 puff Q4H PRN Administration SOB &/or Wheezing Ascorbic Acid 1,000 mg 02/23/20 09:00 02/26/20 08:57 Vitamin C PO 1,000 mg DAILY AURA Administration Aspirin 81 mg 02/21/20 09:00 02/26/20 08:56 Ecotrin PO 81 mg DAILY AURA Administration Dexamethasone 6 mg 02/25/20 08:00 02/26/20 08:56 Decadron PO 6 mg QAM-WM AURA Administration Enoxaparin Sodium 60 mg 02/24/20 21:00 02/26/20 09:01 Lovenox SC 60 mg BID AURA Administration Famotidine 20 mg 02/24/20 21:00 02/26/20 08:56 Pepcid PO 20 mg BID AURA Administration Guaifenesin 600 mg 02/19/20 21:00 02/26/20 08:56 Mucinex PO 600 mg Q12HR AURA Administration Insulin Human Lispro 0 units 02/19/20 16:40 02/22/20 17:52 Humalog SC 2 unit .MODERATE SLIDING SC PRN Administration Moderate Correctional Scale Mometasone Furoate 100 mcg 02/20/20 18:30 02/26/20 08:55 Asmanex Hfa 100 Mcg INH 100 mcg BID-RT AURA Administration Multivitamins 1 tab 02/23/20 09:00 02/26/20 08:56 Theragran PO 1 tab DAILY AURA Administration Sodium Chloride 10 ml 02/23/20 09:00 02/26/20 08:56 Flush - Normal Saline IVF 10 ml Q12HR AURA Administration Tamsulosin HCl 0.4 mg 02/20/20 21:00 02/25/20 21:39 Flomax PO 0.4 mg QPM AURA Administration Zinc Sulfate 220 mg 02/23/20 21:00 02/25/20 21:40 Zinc Sulfate PO 220 mg HS AURA Administration - Exam General Appearance: NAD, awake alert Heart: RRR, no murmur, no gallops, no rubs, normal peripheral pulses Respiratory: CTAB, no wheezes, no rales, no ronchi, normal chest expansion, no tachypnea, normal percussion Gastrointestinal: soft, non-tender, non-distended, normal bowel sounds, no palpable masses, no hepatomegaly, no splenomegaly, no bruit Extremities: no cyanosis, no clubbing, no edema Skin: normal turgor, no lesions, no rashes Neurological: cranial nerve grossly intact, normal sensation to touch, no weakness, no focal deficits, no new deficit Musculoskeletal: normal tone, normal strength, no muscle wasting Psychiatric: normal affect, normal behavior, A&O x 3 Hosp A/P (1) Sepsis with acute hypoxic respiratory failure Code(s): A41.9 - SEPSIS, UNSPECIFIED ORGANISM; R65.20 - SEVERE SEPSIS WITHOUT SEPTIC SHOCK; J96.01 - ACUTE RESPIRATORY FAILURE WITH HYPOXIA Status: Acute (2) Pneumonia due to COVID-19 virus Code(s): U07.1 - COVID-19; J12.89 - OTHER VIRAL PNEUMONIA Status: Acute (3) Chronic myelomonocytic leukemia Code(s): C93.10 - CHRONIC MYELOMONOCYTIC LEUKEMIA NOT ACHIEVE REMISSION Status : Acute (4) Benign prostatic hyperplasia Code(s): N40.0 - BENIGN PROSTATIC HYPERPLASIA WITHOUT LOWER URINRY TRACT SYMP Status: Chronic (5) Diabetes mellitus, type 2 Status: Chronic Qualifiers: Chronic kidney disease stage: stage 2 (mild) (6) Dyslipidemia Code(s): E78.5 - HYPERLIPIDEMIA, UNSPECIFIED Status: Chronic (7) Hypertension Code(s): I10 - ESSENTIAL (PRIMARY) HYPERTENSION Status: Chronic - Plan Acute hypoxic respiratory failure: Patient still requiring about 5 L of nasal cannula oxygen. He is feeling generally better. Continue with current treatment and weaning oxygen as tolerated. He was up and walking in the room with PT. Patient reports he has a BiPAP machine. I have confirmed that he can get oxygen at home up to 10 L/ min and believe that into the BiPAP. COVID-19 pneumonia: He has completed convalescent plasma infusion and Remdesivir. Continue Decadron and inhaled steroid. Seems to be improving slowly. CML: Stable. Oncology following. Treatment on hold until he recovers from the COVID. BPH: Continue tamsulosin. Diabetes mellitus: Blood sugars generally well controlled. No change Hypertension: Blood pressure running a bit high. We will add back his amlodipine from home. Hyperlipidemia: rosuvastatin. DVT prophylaxis: Lovenox and SCD's. PUD prophylaxis: Add PPI given the fact that he remains on steroids. Disposition: He can likely return home when his oxygen requirements are such that it can be supplied at home.
[2020-02-26] MEDS: Zinc Sulfate 220 MG CAP PO SCH (20:57)
[2020-02-26] MEDS: Tamsulosin HCl 0.4 MG CAP PO SCH (20:57)
[2020-02-27] MEDS: Mometasone 100 MCG/PUFF (1 INHALER) INH SCH ×2 (08:05→20:04)
[2020-02-27] MEDS: Dexamethasone 4 MG TAB PO SCH (08:06)
[2020-02-27] MEDS: Ascorbic Acid 500 mg Chewable Tablet PO SCH (08:09)
[2020-02-27] MEDS: Aspirin 81 mg Enteric Coated Tablet PO SCH (08:09)
[2020-02-27] MEDS: Enoxaparin Sodium 60 MG/0.6 ML SYRINGE SC SCH ×2 (08:10→21:10)
[2020-02-27] MEDS: guaiFENesin ER 600 MG TAB PO SCH ×2 (08:11→21:11)
[2020-02-27] MEDS: Famotidine 20 MG TAB PO SCH ×2 (08:11→21:10)
[2020-02-27] MEDS: Multivit, Therapeutic 1 TAB PO SCH (08:12)
--- NOTE | 2020-02-27 14:07 | PDOC.HOSPP ---
- Subjective Encounter Date: 02/27/20 Subjective: Patient generally doing well. He continues to report the only real significant concern he has at this point is the ability to get up at night to go to the bathroom and not become short of breath. Currently his BiPAP has oxygen bled into the base of the tubing at the machine. When he takes the hose off the mask in order to get up to void he feels more short of breath by the time he gets back to bed. - Objective Vital Signs & Weight: Vital Signs (12 hours) Temp Pulse Resp BP Pulse Ox 02/27/20 11:53 99.6 F 84 16 146/79 H 100 02/27/20 08:28 98.4 F 87 20 131/72 94 L 02/27/20 03:52 96 Weight Admit Weight 204 lb 6.4 oz Weight 179 lb 6.4 oz I&O: 02/26/20 02/27/20 02/28/20 06:59 06:59 06:59 Intake Total 3520 1670 360 Output Total 1650 2500 Balance 1870 -830 360 Result Diagrams: 02/26/20 08:37 02/26/20 04:43 Additional Labs: Accuchecks 02/27/20 02/27/20 02/26/20 11:53 06:31 21:05 POC Glucose 133 H 104 135 H 02/26/20 16:21 POC Glucose 172 H Hospitalist ROS - Medication Medications: Active Medications Generic Name Dose Route Start Last Admin Trade Name Freq PRN Reason Stop Dose Admin Acetaminophen 650 mg 02/19/20 16:19 02/24/20 08:46 Tylenol PO 650 mg Q4H PRN Administration Headache/Fever/Mild Pain (1-3) Albuterol Sulfate 2 puff 02/20/20 02:27 02/23/20 20:31 Proventil Hfa INH 2 puff Q4H PRN Administration SOB &/or Wheezing Ascorbic Acid 1,000 mg 02/23/20 09:00 02/27/20 08:09 Vitamin C PO 1,000 mg DAILY AURA Administration Aspirin 81 mg 02/21/20 09:00 02/27/20 08:09 Ecotrin PO 81 mg DAILY AURA Administration Dexamethasone 6 mg 02/25/20 08:00 02/27/20 08:06 Decadron PO 6 mg QAM-WM AURA Administration Enoxaparin Sodium 60 mg 02/24/20 21:00 02/27/20 08:10 Lovenox SC 60 mg BID AURA Administration Famotidine 20 mg 02/24/20 21:00 02/27/20 08:11 Pepcid PO 20 mg BID AURA Administration Guaifenesin 600 mg 02/19/20 21:00 02/27/20 08:11 Mucinex PO 600 mg Q12HR AURA Administration Insulin Human Lispro 0 units 02/19/20 16:40 02/22/20 17:52 Humalog SC 2 unit .MODERATE SLIDING SC PRN Administration Moderate Correctional Scale Mometasone Furoate 100 mcg 02/20/20 18:30 02/27/20 08:05 Asmanex Hfa 100 Mcg INH 100 mcg BID-RT AURA Administration Multivitamins 1 tab 02/23/20 09:00 02/27/20 08:12 Theragran PO 1 tab DAILY AURA Administration Sodium Chloride 10 ml 02/23/20 09:00 02/27/20 08:12 Flush - Normal Saline IVF 10 ml Q12HR AURA Administration Tamsulosin HCl 0.4 mg 02/20/20 21:00 02/26/20 20:57 Flomax PO 0.4 mg QPM AURA Administration Zinc Sulfate 220 mg 02/23/20 21:00 02/26/20 20:57 Zinc Sulfate PO 220 mg HS AURA Administration - Exam General Appearance: NAD, awake alert Heart: RRR, no murmur, no gallops, no rubs, normal peripheral pulses Respiratory: CTAB, no wheezes, no rales, no ronchi, normal chest expansion, no tachypnea, normal percussion Gastrointestinal: soft, non-tender, non-distended, normal bowel sounds, no palpable masses, no hepatomegaly, no splenomegaly, no bruit Extremities: no cyanosis, no clubbing, no edema Skin: normal turgor, no lesions, no rashes Neurological: cranial nerve grossly intact, normal sensation to touch, no weakness, no focal deficits, no new deficit Musculoskeletal: normal tone, normal strength, no muscle wasting Psychiatric: normal affect, normal behavior, A&O x 3 Hosp A/P (1) Sepsis with acute hypoxic respiratory failure Code(s): A41.9 - SEPSIS, UNSPECIFIED ORGANISM; R65.20 - SEVERE SEPSIS WITHOUT SEPTIC SHOCK; J96.01 - ACUTE RESPIRATORY FAILURE WITH HYPOXIA Status: Acute (2) Pneumonia due to COVID-19 virus Code(s): U07.1 - COVID-19; J12.89 - OTHER VIRAL PNEUMONIA Status: Acute (3) Chronic myelomonocytic leukemia Code(s): C93.10 - CHRONIC MYELOMONOCYTIC LEUKEMIA NOT ACHIEVE REMISSION Status : Acute (4) Benign prostatic hyperplasia Code(s): N40.0 - BENIGN PROSTATIC HYPERPLASIA WITHOUT LOWER URINRY TRACT SYMP Status: Chronic (5) Diabetes mellitus, type 2 Status: Chronic Qualifiers: Chronic kidney disease stage: stage 2 (mild) (6) Dyslipidemia Code(s): E78.5 - HYPERLIPIDEMIA, UNSPECIFIED Status: Chronic (7) Hypertension Code(s): I10 - ESSENTIAL (PRIMARY) HYPERTENSION Status: Chronic - Plan Acute hypoxic respiratory failure: Patient still requiring about 5 L of nasal cannula oxygen. He can get up to 10 L to his concentrator at home. He still has some anxiety about the nighttime situation. We will ask the respiratory therapist to see if we can come up with the way to bleed the oxygen into his mask so they can continue to get oxygen. We can try what ever they figure out tonight and anticipate sending him home in the morning. COVID-19 pneumonia: He has completed convalescent plasma infusion and Remdesivir. Continue Decadron and inhaled steroid. Seems to be improving slowly. CML: Stable. Oncology following. Treatment on hold until he recovers from the COVID. BPH: Continue tamsulosin. Diabetes mellitus: Blood sugars generally well controlled. No change Hypertension: Blood pressure running a bit high. We will add back his amlodipine from home. Hyperlipidemia: rosuvastatin. DVT prophylaxis: Lovenox and SCD's. PUD prophylaxis: Add PPI given the fact that he remains on steroids. Disposition: He can likely return home when his oxygen requirements are such that it can be supplied at home.
--- NOTE | 2020-02-27 17:01 | EKG ---
Test Reason : Blood Pressure : / mmHG Vent. Rate : 098 BPM Atrial Rate : 098 BPM P-R Int : 172 ms QRS Dur : 088 ms QT Int : 330 ms P-R-T Axes : 054 005 050 degrees QTc Int : 421 ms Normal sinus rhythm Normal ECG Confirmed by COY RICH ([id number]), image editor MANUEL FLOREZ ([id number]) on 02/27/2020 5:00:54 PM Referred By: Confirmed By:COY RICH
[2020-02-27] MEDS: Zinc Sulfate 220 MG CAP PO SCH (21:10)
[2020-02-27] MEDS: Tamsulosin HCl 0.4 MG CAP PO SCH (21:10)
[2020-02-28] MEDS: Mometasone 100 MCG/PUFF (1 INHALER) INH SCH (06:11)
[2020-02-28] MEDS: Dexamethasone 4 MG TAB PO SCH (09:18)
[2020-02-28] MEDS: Famotidine 20 MG TAB PO SCH (09:18)
[2020-02-28] MEDS: guaiFENesin ER 600 MG TAB PO SCH (09:18)
[2020-02-28] MEDS: Aspirin 81 mg Enteric Coated Tablet PO SCH (09:18)
[2020-02-28] MEDS: Multivit, Therapeutic 1 TAB PO SCH (09:19)
[2020-02-28] MEDS: Ascorbic Acid 500 mg Chewable Tablet PO SCH (09:19)
[2020-02-28] MEDS: Enoxaparin Sodium 60 MG/0.6 ML SYRINGE SC SCH (09:20)
[2020-02-28 12:08] VITALS: BP 149/75; TEMP 99.1
--- NOTE | 2020-02-29 22:30 | DIS ---
DATE OF ADMISSION: 02/19/2020 DATE OF DISCHARGE: 02/28/2020 DISCHARGE DIAGNOSES: 1. Acute hypoxic respiratory failure. 2. COVID pneumonia. 3. Chronic myeloid leukemia. 4. BPH. 5. Diabetes mellitus. 6. Dyslipidemia. 7. Hypertension. 8. History of tobacco abuse. HISTORY OF PRESENT ILLNESS: The patient is a 64-year-old male, who presented to the hospital with some worsening shortness of breath after known COVID infection. The patient had initial workup, which included CT showing typical COVID pneumonia findings with diffuse bilateral infiltrates. His chest x-ray also showed some chronic lung findings. His D-dimer was 0.58. CRP 6.3. HOSPITAL COURSE: The patient was admitted to the hospital with acute hypoxic respiratory failure due to COVID pneumonia. He received convalescent plasma. He also received remdesivir and steroids with Decadron. He subsequently was able to come off high-flow oxygen on to nasal cannula oxygen. The patient had been wearing BiPAP at night for approximately 20 years. We were able to bleed in oxygen to that at night and he did well with that with the exception of having some difficulties at night when he would get up to go to the bathroom and tried to manage his oxygen flow through his apparatus. We spent a couple of days trying to work that out into a manner that would be acceptable for him. He had home oxygen arranged with concentrator that could go up to 10 L and ultimately he felt like he was comfortable making the transition to home. He had arranged a room right next to the bathroom so that he could be close. He is also going to take a couple of urinal so that he can minimize those necessary trips, but overall he appeared comfortable. PHYSICAL EXAMINATION: VITAL SIGNS: On the day of discharge, temperature was 99.1, pulse 88, respirations 20, O2 saturation 100% on 4.5 to 5 L nasal cannula, and BP 149/75. GENERAL: He was awake, alert, pleasant, cooperative, speaking in full sentences. HEART: Regular. LUNGS: Clear bilaterally. ABDOMEN: Benign. EXTREMITIES: Had no edema. DISPOSITION: The patient is discharged to home. ACTIVITY: As tolerated. DIET: He will be on a heart healthy diet. He will be on the oxygen as stated. MEDICATIONS: Include, 1. Aspirin 81 mg daily. 2. CoQ10 one p.o. daily. 3. Losartan 1 p.o. daily. 4. Tamsulosin 0.4 daily. 5. Vitamin B complex one daily. 6. Rosuvastatin 1 p.o. daily. 7. Norvasc 1 p.o. daily. 8. Centrum Silver 1 daily. 9. Flovent HFA 1 inhalation b.i.d. 10. Naproxen 1 p.o. b.i.d. 11. Dexamethasone 2 p.o. daily. FOLLOWUP: He is to follow up with Dr. Juan Miguel Mora. He is encouraged to call so that they can be aware that he has COVID pneumonia. He also understands he needs to isolate until day 21, at which time, he can come out of isolation. His has already had COVID pneumonia, so he understands that she is safe. He can return to the hospital at anytime he has the need to do so. TIME SPENT: Total time in discharge activities is greater than 30 minutes. Job ID: [id number]
== END 2020-02-28 15:31 | disposition home or self-care (01) | DRG 871 ==
LOC: ERS 12:09 → ERHOLD 15:29 → 2SW 19:28
PROVIDERS: ADMIT Family Medicine; ATTEND Family Medicine
PROC: 8E0ZXY6 Isolation (ICD-10-PCS; principal; 2020-02-19)
PROC: XW13325 Transfusion of Convalescent Plasma (Nonautologous) into Peripheral Vein, Percutaneous Approach, New Technology Group 5 (ICD-10-PCS; 2020-02-20)
PROC: XW033E5 Introduction of Remdesivir Anti-infective into Peripheral Vein, Percutaneous Approach, New Technology Group 5 (ICD-10-PCS; 2020-02-20)
PROC: XW033E5 Introduction of Remdesivir Anti-infective into Peripheral Vein, Percutaneous Approach, New Technology Group 5 (ICD-10-PCS; 2020-02-24)
PROC: 5A09357 Assistance with Respiratory Ventilation, Less than 24 Consecutive Hours, Continuous Positive Airway Pressure (ICD-10-PCS; 2020-02-27)
DX: A41.89 Other specified sepsis (principal); U07.1 COVID-19; J12.89 Other viral pneumonia; J96.01 Acute respiratory failure with hypoxia; C93.10 Chronic myelomonocytic leukemia not having achieved remission; D46.9 Myelodysplastic syndrome, unspecified; R65.20 Severe sepsis without septic shock; N40.0 Benign prostatic hyperplasia without lower urinary tract symptoms; E11.22 Type 2 diabetes mellitus with diabetic chronic kidney disease; N18.2 Chronic kidney disease, stage 2 (mild); E78.5 Hyperlipidemia, unspecified; I12.9 Hypertensive chronic kidney disease with stage 1 through stage 4 chronic kidney disease, or unspecified chronic kidney disease; F17.210 Nicotine dependence, cigarettes, uncomplicated; D63.1 Anemia in chronic kidney disease; E83.42 Hypomagnesemia; Z91.048 Other nonmedicinal substance allergy status; Z79.899 Other long term (current) drug therapy
CPT/HCPCS: 36415; 36416; 36430; 71045; 71275; 80048; 80053; 80076; 80202; 82607; 82728; 82746; 82805; 83036; 83540; 83550; 83605; 83735; 84100; 84443; 84484; 85025; 85046; 85379; 85652; 86140; 86850; 86900; 86901; 87040; 93005; 96365; 96366; 96367; 96375; J0692; J1100; J1642; J1650; J3370; J3475; J3490; J7030; J7050; J8540; P9017; Q9967

== ENCOUNTER 2023-08-12 13:43 | Outpatient (CLI) | payer BC, MEDICARE | END 2023-08-12 13:44 | disposition home or self-care (01) | LOC: ULT 13:43 | PROVIDERS: ATTEND Internal Medicine | DX: Z51.11 Encounter for antineoplastic chemotherapy (principal); C93.10 Chronic myelomonocytic leukemia not having achieved remission | CPT/HCPCS: 93306 ==

== ENCOUNTER 2023-12-18 07:51 | Day surgery (SDC) | payer BC, MEDICARE ==
[2023-12-18] MEDS ORDERED: Acetaminophen 500 MG TAB ONE (08:08)
[2023-12-18] MEDS: Acetaminophen 500 MG TAB PO SCH (08:09)
[2023-12-18] MEDS ORDERED: diphenhydrAMINE 25 MG CAP PO SCH (08:15)
[2023-12-18 12:46] VITALS: BP 131/79; TEMP 97.9
== END 2023-12-18 12:46 | disposition home or self-care (01) ==
LOC: ONC/OP 07:51
PROVIDERS: ATTEND Internal Medicine Hematology & Oncology
DX: D64.9 Anemia, unspecified (principal); D69.6 Thrombocytopenia, unspecified
CPT/HCPCS: 36430; 86850; 86900; 86901; J1642; P9016

== ENCOUNTER 2024-02-07 08:44 | Day surgery (SDC) | payer BC, MEDICARE ==
[2024-02-07] MEDS ORDERED: diphenhydrAMINE 25 MG CAP ONE (10:01)
[2024-02-07] MEDS ORDERED: Acetaminophen 500 MG TAB ONE (10:01)
[2024-02-07] MEDS: Acetaminophen 500 MG TAB PO SCH (10:02)
[2024-02-07] MEDS: diphenhydrAMINE 25 MG CAP PO SCH (10:02)
[2024-02-07 12:38] VITALS: BP 155/77; TEMP 97.4
== END 2024-02-07 12:54 | disposition home or self-care (01) ==
LOC: ONC/OP 08:44
PROVIDERS: ATTEND Internal Medicine
DX: D64.9 Anemia, unspecified (principal); D69.6 Thrombocytopenia, unspecified; Z91.048 Other nonmedicinal substance allergy status
CPT/HCPCS: 36430; 36591; 86850; 86900; 86901; J1642; P9016

== ENCOUNTER 2024-04-02 08:52 | Day surgery (SDC) | payer BC, MEDICARE ==
[2024-04-02] MEDS ORDERED: diphenhydrAMINE 25 MG CAP ONE (10:03)
[2024-04-02] MEDS ORDERED: Acetaminophen 500 MG TAB ONE (10:03)
[2024-04-02] MEDS: diphenhydrAMINE 25 MG CAP PO SCH (10:04)
[2024-04-02] MEDS: Acetaminophen 500 MG TAB PO SCH (10:04)
[2024-04-02 12:44] VITALS: BP 162/77; TEMP 97.6
== END 2024-04-02 12:44 | disposition home or self-care (01) ==
LOC: ONC/OP 08:52
PROVIDERS: ATTEND Internal Medicine
DX: D64.9 Anemia, unspecified (principal); D69.6 Thrombocytopenia, unspecified; Z91.048 Other nonmedicinal substance allergy status
CPT/HCPCS: 36430; 86850; 86900; 86901; J1642; P9016

== ENCOUNTER 2024-04-23 09:24 | Day surgery (SDC) | payer BC, MEDICARE ==
[2024-04-23] MEDS: diphenhydrAMINE 25 MG CAP ONE (10:47)
[2024-04-23] MEDS: Acetaminophen 500 MG TAB ONE (10:47)
[2024-04-23] MEDS ORDERED: diphenhydrAMINE 25 MG CAP PO SCH (12:30)
[2024-04-23] MEDS ORDERED: Acetaminophen 500 MG TAB PO SCH (12:30)
[2024-04-23 13:50] VITALS: BP 120/69; TEMP 97.9
== END 2024-04-23 13:51 | disposition home or self-care (01) ==
LOC: ONC/OP 09:24
PROVIDERS: ATTEND Internal Medicine
DX: D64.9 Anemia, unspecified (principal); D69.6 Thrombocytopenia, unspecified; Z91.048 Other nonmedicinal substance allergy status
CPT/HCPCS: 36430; 86850; 86900; 86901; J1642; P9016

== ENCOUNTER 2024-05-21 09:16 | Day surgery (SDC) | payer BC, MEDICARE ==
[2024-05-21] MEDS ORDERED: Acetaminophen 500 MG TAB ONE (10:13)
[2024-05-21] MEDS: Acetaminophen 500 MG TAB PO SCH (10:14)
[2024-05-21] MEDS ORDERED: diphenhydrAMINE 25 MG CAP ONE (10:14)
[2024-05-21] MEDS: diphenhydrAMINE 25 MG CAP PO SCH (10:14)
[2024-05-21 12:44] VITALS: TEMP 97.4
[2024-05-21 12:47] VITALS: BP 98/56
== END 2024-05-21 12:49 | disposition home or self-care (01) ==
LOC: ONC/OP 09:16
PROVIDERS: ATTEND Internal Medicine
DX: D64.9 Anemia, unspecified (principal); D69.6 Thrombocytopenia, unspecified
CPT/HCPCS: 36430; 86850; 86900; 86901; J1642; P9016

== ENCOUNTER 2024-06-19 09:30 | Day surgery (SDC) | payer BC, MEDICARE ==
[2024-06-19] MEDS ORDERED: Acetaminophen 500 MG TAB ONE (10:23)
[2024-06-19] MEDS: Acetaminophen 500 MG TAB PO SCH (10:24)
[2024-06-19] MEDS ORDERED: diphenhydrAMINE 25 MG CAP PO SCH (10:30)
[2024-06-19 12:39] VITALS: BP 118/60; TEMP 97.7
== END 2024-06-19 12:48 | disposition home or self-care (01) ==
LOC: ONC/OP 09:30
PROVIDERS: ATTEND Internal Medicine
DX: D64.9 Anemia, unspecified (principal); D69.6 Thrombocytopenia, unspecified
CPT/HCPCS: 36430; 86850; 86900; 86901; J1642; P9016

== ENCOUNTER 2024-07-02 09:27 | Day surgery (SDC) | payer BC, MEDICARE ==
[2024-07-02] MEDS ORDERED: Acetaminophen 500 MG TAB ONE (10:45)
[2024-07-02] MEDS ORDERED: diphenhydrAMINE 25 MG CAP ONE (10:45)
[2024-07-02] MEDS: diphenhydrAMINE 25 MG CAP PO SCH (10:46)
[2024-07-02] MEDS: Acetaminophen 500 MG TAB PO SCH (10:46)
[2024-07-02 13:44] VITALS: BP 109/55; TEMP 97.9
[2024-07-02 14:14] LABS: #Basophils 0.04 10x3/uL (0.0-0.2); #Eosinophils Less than 0.03 10x3/uL (0.0-0.7); %Basophils 1.2 % (0.0-1.0); %Eosinophils 0.6 % (0.0-10.0); %Lymphocytes 19.4 % (21.0-51.0); %Monocytes 39.2 % (0.0-10.0); %Neutrophils 32.8 % (42.0-75.0); Hematocrit 23.4 % (42.0-52.0); Hemoglobin 7.7 g/dL (14.0-18.0); Mean Corpuscular HGB CONC 32.9 g/dL (32.0-36.0); Mean Corpuscular Hemoglobin 33.2 pg (27.0-31.0); Mean Corpuscular Volume 100.9 fL (78.0-98.0); Mean Platelet Volume 11.5 fL (7.4-10.4); Platelet Count 107 10x3/uL (130-400); Red Blood Cell (RBC) Count 2.32 mill/uL (4.70-6.10)
== END 2024-07-02 13:46 | disposition home or self-care (01) ==
LOC: ONC/OP 09:27
PROVIDERS: ATTEND Internal Medicine
DX: D64.9 Anemia, unspecified (principal); D69.6 Thrombocytopenia, unspecified; Z91.048 Other nonmedicinal substance allergy status
CPT/HCPCS: 36430; 85025; 86850; 86900; 86901; J1642; P9016

== ENCOUNTER 2025-01-28 09:41 | Day surgery (SDC) | payer BC, MEDICARE ==
[~2025-01-28 09:41] MED LIST changes: -Iopamidol-370 76% 500 ML 1 ML ONE; +diphenhydrAMINE 25 MG CAP PO SCH
[2025-01-28] MEDS ORDERED: Acetaminophen 500 MG TAB ONE (10:26)
[2025-01-28] MEDS: Acetaminophen 500 MG TAB PO SCH (10:27)
[2025-01-28 13:35] VITALS: BP 109/60; TEMP 98.2
== END 2025-01-28 13:46 | disposition home or self-care (01) ==
LOC: ONC/OP 09:41
PROVIDERS: ATTEND Internal Medicine
DX: D64.9 Anemia, unspecified (principal); D69.59 Other secondary thrombocytopenia
CPT/HCPCS: 36430; 86850; 86900; 86901; P9016

== ENCOUNTER 2025-02-18 09:30 | Day surgery (SDC) | payer BC, MEDICARE ==
[2025-02-18] MEDS ORDERED: Acetaminophen 500 MG TAB ONE (10:13)
[2025-02-18] MEDS: Acetaminophen 500 MG TAB PO SCH (10:13)
[2025-02-18 12:28] VITALS: BP 108/57; TEMP 98.4
== END 2025-02-18 12:30 | disposition home or self-care (01) ==
LOC: ONC/OP 09:30
PROVIDERS: ATTEND Internal Medicine
DX: D64.9 Anemia, unspecified (principal); D69.6 Thrombocytopenia, unspecified
CPT/HCPCS: 36430; 86850; 86900; 86901; P9016

== ENCOUNTER 2025-04-01 09:42 | Day surgery (SDC) | payer BC, MEDICARE ==
[2025-04-01] MEDS ORDERED: Acetaminophen 500 MG TAB ONE (10:06)
[2025-04-01] MEDS: Acetaminophen 500 MG TAB PO SCH (10:07)
[2025-04-01] MEDS ORDERED: diphenhydrAMINE 25 MG CAP PO SCH (10:15)
[2025-04-01 13:04] VITALS: BP 129/60; TEMP 97.9
== END 2025-04-01 13:05 | disposition home or self-care (01) ==
LOC: ONC/OP 09:42
PROVIDERS: ATTEND Internal Medicine Hematology & Oncology
DX: D64.9 Anemia, unspecified (principal); D69.6 Thrombocytopenia, unspecified
CPT/HCPCS: 36430; 86850; 86900; 86901; P9016

== ENCOUNTER 2025-04-29 09:31 | Day surgery (SDC) | payer BC, MEDICARE ==
[2025-04-29] MEDS ORDERED: Acetaminophen 500 MG TAB ONE (10:18)
[2025-04-29] MEDS: Acetaminophen 500 MG TAB PO SCH (10:19)
[2025-04-29 14:23] VITALS: BP 147/67; TEMP 98.4
== END 2025-04-29 14:24 | disposition home or self-care (01) ==
LOC: ONC/OP 09:31
PROVIDERS: ATTEND Internal Medicine
DX: D64.9 Anemia, unspecified (principal); D69.59 Other secondary thrombocytopenia
CPT/HCPCS: 36430; 86850; 86900; 86901; P9016

== ENCOUNTER 2025-05-11 09:29 | Day surgery (SDC) | payer BC, MEDICARE ==
[2025-05-11] MEDS ORDERED: diphenhydrAMINE 25 MG CAP PO SCH (09:45)
[2025-05-11] MEDS ORDERED: Acetaminophen 500 MG TAB ONE (11:03)
[2025-05-11] MEDS: Acetaminophen 500 MG TAB PO SCH (11:05)
[2025-05-11 16:00] VITALS: BP 113/56; TEMP 98.5
[2025-05-12] MEDS ORDERED: PNEUMOC 20-VAL CONJ-DIP CRM/PF 0.5 ML SYRINGE IM ONE (09:00)
== END 2025-05-11 14:20 | disposition home or self-care (01) ==
LOC: ONC/OP 09:29
PROVIDERS: ATTEND Internal Medicine
DX: D64.9 Anemia, unspecified (principal); D69.59 Other secondary thrombocytopenia
CPT/HCPCS: 36430; 86850; 86900; 86901; P9016